=== PATIENT | male | born 1970 | race Caucasian/White ===

== ENCOUNTER → 2016-07-20 | Outpatient (CLI) | payer OTHER ==
[~2016-07-20] MED LIST: LSN/2025 PO
[2016-07-20 09:58] LABS: ESTIMATED AVERAGE GLUCOSE 154 mg/dl; HA1C FLAG Normal (Normal)
[2016-07-20 10:07] LABS: ALB/GLOB RATIO 1.2 (0.9-2); ALKALINE PHOSPHATASE 90 U/L (45-117); ALT/SGPT 67 U/L (12-78); AST/SGOT 26 U/L (15-37); BLOOD UREA NITROGEN 19 mg/dl (7-18); BUN/CREATININE RATIO 14.5 (10-20); CALCIUM 9.7 mg/dl (8.5-10.1); CARBON DIOXIDE 30 mmol/L (21-32); CHLORIDE 102 mmol/L (98-107); CHOLESTEROL 148 mg/dl (0-200); GLUCOSE 137 mg/dl (70-99); HDL CHOLESTEROL 37 mg/dl; LDL CHOLESTEROL CALCULATED 69 mg/dl; POTASSIUM 4.3 mmol/L (3.5-5.1); SODIUM 138 mmol/L (136-145); TRIGLYCERIDES 210 mg/dl (0-150); VERY LOW DENSITY LIPOPROT CALC 42 mg/dl
[2016-07-20 10:44] LABS: LYME DISEASE AB IGG NEG (NEG); LYME DISEASE AB IGM NEG (NEG)
== END | disposition home or self-care (01) ==
LOC: C.LABSPEC 08:18
PROVIDERS: ATTEND Nurse Practitioner
DX: Z00.00 Encounter for general adult medical examination without abnormal findings (principal); E11.9 Type 2 diabetes mellitus without complications; E78.2 Mixed hyperlipidemia; R53.83 Other fatigue; W57.XXXA Bitten or stung by nonvenomous insect and other nonvenomous arthropods, initial encounter

== ENCOUNTER 2022-06-08 17:47 | Inpatient (IN) ==
[2022-06-08] MEDS ORDERED: CEFEPIME 2,000 MG/20 ML VIAL IV STA (18:28)
--- NOTE | 2022-06-08 18:44 | Emergency Department Note ---
Impression & Plan Cellulitis, Tachycardia, Chills, Ulcer ED Provider Note NAME: CAITIE ADHIKARI AGE: 51 SEX: M : 1970 ARRIVES VIA: Walk-In INFORMANT: [Patient][family] ED PROVIDER(S): [Demetris Neil MD] CHIEF COMPLAINT: Foot injury, possible infection HISTORY OF PRESENT ILLNESS: The patient is a 51-year-old male who states that over a month ago, he pulled a blister off the right plantar first toe. The area just has not healed. Today, he noticed some right toe erythema that seems to be spreading up his foot and even his leg. He had some chills earlier and felt lightheaded. No fever. No real pain. He has not had respiratory complaints, no abdominal pain or chest pain. He is diabetic, no prior history of cellulitis. PMHx/PSHx: See Below SOCIAL HISTORY: See Below. PHYSICAL EXAM: GENERAL: Patient is in no acute distress. HEENT: No acute trauma, normocephalic atraumatic, mucous membranes moist, no nasal congestion. NECK: No stridor, no adenopathy, no meningismus, trachea is midline. LUNGS: Clear to auscultation bilaterally, no wheeze, no rhonchi, breath sounds equal. HEART: Mildly tachycardic, regular rhythm, no murmurs. ABDOMEN: Soft, nontender, bowel sounds positive, no peritonitis. EXTREMITIES: No cyanosis. The patient has edema of the right foot and right first toe. There is erythema and warmth that extends from the toe up the dorsal foot and up the medial aspect of the leg. There is a 1 cm open lesion to the medial plantar portion of the right first toe consistent with what seems like an ulcer. A foul odor is noted. NEUROLOGIC: Oriented x 3, no acute motor or sensory deficits, no focal weakness. SKIN: No jaundice, no diaphoresis. DIFFERENTIAL DIAGNOSIS: Sepsis or bacteremia, osteomyelitis, cellulitis, abscess, electrolyte imbalance, dehydration, among others. EMERGENCY DEPARTMENT COURSE/PROCEDURES: Prior/Outside records reviewed: None. ECG per my interpretation: Indication was possible sepsis. The ECG shows a normal sinus rhythm with a rate of 90. There is no ST elevation, no PVCs. The QTc is 428. Continuous Cardiac Monitoring per my interpretation: An order was placed for continuous cardiac monitoring. The monitor shows a rate of 93 with normal sinus rhythm. MEDICAL DECISION MAKING: There is no leukocytosis or concerning anemia. There is a normal platelet count. Sodium slightly low at 132 but not in need of emergent correction. Creatinine was slightly elevated at 1.42 consistent with some dehydration or renal insufficiency. Lactic acid level was not elevated making severe sepsis less likely. No concerning liver enzyme elevation. Procalcitonin level was not elevated. ECG showed a normal sinus rhythm, no ischemia. Cardiac enzyme testing x1 is not consistent with acute cardiac injury. COVID test returned negative. Right foot CT does not show any obvious osteomyelitis. A deep tissue infection was suspected. The patient did present tachycardic. He complained of chills. He had a deep ulcer to the right first toe and a right foot and leg cellulitis. The patient was given IV cefepime as antibiotic coverage. He was given 2 L of IV saline for hydration. The patient is in need of a hospital stay. He is diabetic with a deep right toe ulcer. There is a foul odor from the wound. I believe he will do poorly as an outpatient. I did speak with case management, the on-call hospitalist was counseled. The patient is aware of all his findings. DISPOSITION: Patient's presentation and findings warrant a hospital stay. Past Med/Surg History Medical History GERD (gastroesophageal reflux disease) HX-UNDER CONTROL Hyperlipidemia Hypertension Hypertriglyceridemia Interstitial cystitis Mild renal insufficiency Type 2 diabetes mellitus Surgical History History of bladder surgery CYSTOSCOPY X 2 Family History Father Hypertension Stroke Grandmother (Paternal) Family history of diabetes mellitus Denies family history of Ovarian cancer Prostate cancer Myocardial infarction Breast cancer Colorectal cancer Social History Smoking Status: Current every day smoker Tobacco Type: Smokeless Tobacco (Dip or Chew) Second Hand Exposure: Yes (FAMILY SMOKES); Hx Alcohol Use: Yes Alcohol type: beer Hx Substance Use: No Preferred Language: Upper Sorbian Communication Ability: Effective Pediatric Sports Medicine Specialist Required: No Beliefs That Will Affect Care: None marital status: Current Living Situation: Spouse and Family current occupational status: employed current occupation: [employer] Feels Safe at Home: Yes Dental Care, Regularly: No Physical Activity Frequency: Daily Seatbelt Use: always Sunscreen Use: No Assistive Devices: None Allergies Allergies Allergy/AdvReac Type Severity Reaction Status Date / Time No Known Allergies Allergy Unknown Verified 06/08/22 19:06 Home Meds Previous Rx's Medication Instructions Recorded pen needle, diabetic 31 gauge x #100 ea 10/13/1806/16" (BD Ultra-Fine Mini Pen Needle) metformin 500 mg tablet,extended 1,000 mg PO BID #360 tabs 08/10/21 release 24 hr lisinopril 20 1 tab PO QAM #90 tabs 11/18/21 mg-hydrochlorothiazide 25 mg tablet empagliflozin 25 mg tablet 25 mg PO QAM #90 tabs 05/30/22 (Jardiance) Results & Data (ED) Vital Signs Vital Signs - 24 hr 06/08/22 18:04 06/08/22 18:20 06/08/22 18:29 Temperature 36.7 C Temperature Source Oral Pulse Rate 107 H 94 H Pulse Rate [Apical] 93 H Pulse Rhythm [Apical] Regular Pulse Strength [Apical] Normal Respiratory Rate 20 20 Respiratory Effort / Characteristics Non-Labored Spontaneous Non-Labored Spontaneous Respiratory Depth Normal Normal Respiratory Pattern Regular Blood Pressure 127/68 Blood Pressure [Right Arm] 122/69 Blood Pressure Mean 87 Blood Pressure Mean [Right Arm] 86 Blood Pressure Position [Right Arm] Lying Pulse Oximetry 100 98 100 Oxygen Delivery Method Room Air Room Air Room Air Sepsis Recent Fever Within 48 Hours No Sepsis New/Unexplained Change in Mental Status No Sepsis Action Taken by Nursing No Action Required 06/08/22 18:29 06/08/22 19:42 Temperature Temperature Source Pulse Rate Pulse Rate [Apical] 94 H 91 H Pulse Rhythm [Apical] Regular Regular Pulse Strength [Apical] Normal Normal Respiratory Rate 20 20 Respiratory Effort / Characteristics Non-Labored Spontaneous Non-Labored Spontaneous Respiratory Depth Normal Normal Respiratory Pattern Regular Regular Blood Pressure Blood Pressure [Right Arm] 122/69 136/77 Blood Pressure Mean Blood Pressure Mean [Right Arm] 86 96 Blood Pressure Position [Right Arm] Sitting Pulse Oximetry 99 100 Oxygen Delivery Method Room Air Sepsis Recent Fever Within 48 Hours Sepsis New/Unexplained Change in Mental Status Sepsis Action Taken by Group Home Medications Current Medication List: was personally reviewed by me Laboratory Data Attestation: I reviewed the patient's lab results. 06/08/22 18:36 06/08/22 18:36 Lab Results 06/08/22 06/08/22 06/08/22 Range/Units 18:36 18:36 18:36 WBC 10.05 (4.8-10.8) K/ul RBC 4.49 L (4.70-6.10) M/uL Hgb 14.3 (14.0-18.0) g/dl Hct 40.1 L (42.0-52.0) % MCV 89.3 (80.0-100.0) fL MCH 31.8 (25.0-34.0) pg MCHC 35.7 (32.0-36.0) g/dL RDW Std Deviation 39.1 (36.4-46.3) fL RDW Coeff of Mary Ellen 12.1 (11.5-14.5) % Plt Count 160 (130-400) K/uL MPV 10.3 (9.4-12.4) fL Immature Gran % (Auto) 0.4 % Neut % (Auto) 72.3 % Lymph % (Auto) 18.8 % [place] % (Auto) 7.8 % Eos % (Auto) 0.3 % Baso % (Auto) 0.4 % Neut # (Auto) 7.27 H (1.40-6.50) K/uL Lymph # (Auto) 1.89 (1.2-3.4) K/uL [place] # (Auto) 0.78 H (0.11-0.59) K/uL Eos # (Auto) 0.03 (0-0.50) K/uL Baso # (Auto) 0.04 (0-0.2) K/uL Immature Gran # (Auto) 0.04 (0.01-0.20) K/uL Sodium 132 L (136-145) mmol/L Potassium 3.9 (3.5-5.1) mmol/L Chloride 97 L (98-107) mmol/L Carbon Dioxide 25 (21-32) mmol/L Anion Gap 10 (3-11) BUN 33 H (6-23) mg/dl Creatinine 1.42 H (0.6-1.4) mg/dl Est Cr Clr Drug Dosing 76.8 ml/min Est GFR ( Amer) 65.4 ml/min Est GFR (Non-Af Amer) 56.4 ml/min BUN/Creatinine Ratio 23.2 H (10-20) Glucose 170 H (70-99(Fasting)) mg/dl Lactate 1.2 (0.4-2.0) mmol/L Calcium 9.4 (8.5-10.1) mg/dl Magnesium 2.1 (1.7-2.4) mg/dl Total Bilirubin 1.1 H (0.2-1.0) mg/dl Direct Bilirubin 0.2 (0-0.2) mg/dl AST 25 (13-39) U/L ALT 41 (7-52) U/L Alkaline Phosphatase 85 (34-104) U/L Troponin I High Sens 6.7 (0-20) pg/ml Total Protein 7.7 (6.0-8.3) gm/dl Albumin 4.3 (3.4-5.0) gm/dl Procalcitonin (0-0.5) ng/ml SARS-CoV-2, RNA, NAAT (NEGATIVE) 06/08/22 06/08/22 Range/Units 18:36 18:51 WBC (4.8-10.8) K/ul RBC (4.70-6.10) M/uL Hgb (14.0-18.0) g/dl Hct (42.0-52.0) % MCV (80.0-100.0) fL MCH (25.0-34.0) pg MCHC (32.0-36.0) g/dL RDW Std Deviation (36.4-46.3) fL RDW Coeff of Mary Ellen (11.5-14.5) % Plt Count (130-400) K/uL MPV (9.4-12.4) fL Immature Gran % (Auto) % Neut % (Auto) % Lymph % (Auto) % [place] % (Auto) % Eos % (Auto) % Baso % (Auto) % Neut # (Auto) (1.40-6.50) K/uL Lymph # (Auto) (1.2-3.4) K/uL [place] # (Auto) (0.11-0.59) K/uL Eos # (Auto) (0-0.50) K/uL Baso # (Auto) (0-0.2) K/uL Immature Gran # (Auto) (0.01-0.20) K/uL Sodium (136-145) mmol/L Potassium (3.5-5.1) mmol/L Chloride (98-107) mmol/L Carbon Dioxide (21-32) mmol/L Anion Gap (3-11) BUN (6-23) mg/dl Creatinine (0.6-1.4) mg/dl Est Cr Clr Drug Dosing ml/min Est GFR ( Amer) ml/min Est GFR (Non-Af Amer) ml/min BUN/Creatinine Ratio (10-20) Glucose (70-99(Fasting)) mg/dl Lactate (0.4-2.0) mmol/L Calcium (8.5-10.1) mg/dl Magnesium (1.7-2.4) mg/dl Total Bilirubin (0.2-1.0) mg/dl Direct Bilirubin (0-0.2) mg/dl AST (13-39) U/L ALT (7-52) U/L Alkaline Phosphatase (34-104) U/L Troponin I High Sens (0-20) pg/ml Total Protein (6.0-8.3) gm/dl Albumin (3.4-5.0) gm/dl Procalcitonin 0.29 (0-0.5) ng/ml SARS-CoV-2, RNA, NAAT NEGATIVE (NEGATIVE) Administered Medications Discontinued Medications Sodium Chloride (Nss 1000ml) 1,000 mls @ 999 mls/hr IV .Q1H1M ALCIRA Stop: 06/08/22 20:30 Last Infusion: 06/08/22 21:03 Dose: 0 mls/hr Documented By: Admin: 06/08/22 19:46 Dose: 999 mls/hr Documented By: Infusion: 06/08/22 19:46 Dose: 999 mls/hr Documented By: Admin: 06/08/22 18:54 Dose: 999 mls/hr Documented By: ROBIN Cefepime HCl (Maxipime) 2,000 mg in 20 mls @ 5 mls/min IV NOW STA; Protocol Stop: 06/08/22 18:31 Last Admin: 06/08/22 19:29 Dose: 5 mls/min Documented By: [facility] Imaging Data Radiologist's Impression: Foot CT 06/08/22 18:28 Exam(s): CT RIGHT FOOT Without Contrast, CT LEFT FOOT EXAM: CT Right Lower Extremity Without Intravenous Contrast, Foot CLINICAL HISTORY: Reason for exam: poss osteo. TECHNIQUE: Axial computed tomography images of the right foot without intravenous contrast. Automated exposure control was utilized for the study. A dose lowering technique was utilized adhering to the principles of ALARA. COMPARISON: No relevant prior studies available. FINDINGS: Bones/joints: Unremarkable. No metatarsal fracture. No Lisfranc malalignment. Soft tissues: Soft tissue ulcer along the medial, plantar aspect of the great toe measures approximately 9 x 8 mm. Associated, soft tissue swelling and skin thickening, consistent with cellulitis. No fluid collection or abscess. No osseous erosion or focal osteopenia to indicate osteomyelitis at this time. No radiopaque foreign body. IMPRESSION: Soft tissue ulcer along the medial, plantar aspect of the great toe measures approximately 9 x 8 mm. Associated, soft tissue swelling and skin thickening, consistent with cellulitis. No fluid collection or abscess. No osseous erosion or focal osteopenia to indicate osteomyelitis at this time. EXAM: CT Left Lower Extremity Without Intravenous Contrast, Foot CLINICAL HISTORY: Reason for exam: poss osteo. TECHNIQUE: Axial computed tomography images of the left foot without intravenous contrast. Automated exposure control was utilized for the study. A dose lowering technique was utilized adhering to the principles of ALARA. COMPARISON: No relevant prior studies available. FINDINGS: Bones/joints: Unremarkable. No acute fracture. No dislocation. Soft tissues: Unremarkable. No radiopaque foreign body. Other findings: Bipartite medial sesamoid. IMPRESSION: No acute findings in the left foot. Electronically signed by: Wali Em MD 06/08/22 19:59 PM Discharge Plan Visit Data Chief Complaint: Foot Injury/Pain Stated Complaint: R FOOT POSSIBLY SPRAINED, TOE POSSIBLY INFECTED ED Provider: Demetris Neil Discharge Problem: Cellulitis, Tachycardia, Chills, Ulcer Patient Disposition: Admitted As Inpatient Condition: Fair Forms Stand Alone Forms: [facility] [employer] Prescriptions Prescriptions: No Action metformin 500 mg tablet extended release 24 hr 1,000 mg PO BID Qty: 360 3RF lisinopril-hydrochlorothiazide 20-25 mg tablet 1 tab PO QAM Qty: 90 3RF Jardiance 25 mg tablet 25 mg PO QAM Qty: 90 3RF (DME) pen needle, diabetic [BD Ultra-Fine Mini Pen Needle] 31 gauge x 3/16" needle See Dose Instructions .ROUTE .MEDSUPPLY Qty: 100 0RF Dose Instruction: As directed Rx Instructions: As directed 1 daily Referrals Referrals: No Kim MD [Primary Care Provider] -
[2022-06-08] MEDS: SODIUM CHLORIDE 0.9% 1000ML 1,000 ML IV SCH ×2 (18:54→19:46)
[2022-06-08 19:12] LABS: Basophils # (auto) 0.04 K/uL (0-0.2); Basophils % (auto) 0.4 %; Eosinophils # (auto) 0.03 K/uL (0-0.50); Eosinophils % (auto) 0.3 %; Hematocrit (blood only) 40.1 % (42.0-52.0); Hemoglobin 14.3 g/dl (14.0-18.0); Immature Granulocytes # (auto) 0.04 K/uL (0.01-0.20); Immature Granulocytes % (auto) 0.4 %; Lymphocytes # (auto) 1.89 K/uL (1.2-3.4); Lymphocytes % (auto) 18.8 %; Mean Corpuscular Hemoglobin 31.8 pg (25.0-34.0); Mean Corpuscular Hgb Conc 35.7 g/dL (32.0-36.0); Mean Corpuscular Volume 89.3 fL (80.0-100.0); Mean Platelet Volume 10.3 fL (9.4-12.4); Monocytes # (auto) 0.78 K/uL (0.11-0.59); Monocytes % (auto) 7.8 %; Neutrophils # (auto) 7.27 K/uL (1.40-6.50); Neutrophils % (auto) 72.3 %; Platelet Count 160 K/uL (130-400); RDW Coefficient of Variation 12.1 % (11.5-14.5); RDW Standard Deviation 39.1 fL (36.4-46.3); Red Blood Count 4.49 M/uL (4.70-6.10); White Blood Count 10.05 K/ul (4.8-10.8)
[2022-06-08 19:13] LABS: Albumin Level 4.3 gm/dl (3.4-5.0); BUN Creatinine Ratio 23.2 (10-20); Bilirubin Direct 0.2 mg/dl (0-0.2); Bilirubin,Total 1.1 mg/dl (0.2-1.0); Calcium 9.4 mg/dl (8.5-10.1); Creatinine Clr Calc Pharmacy 76.8 ml/min; Est GFR (African American) 65.4 ml/min; Est GFR (Non-African American) 56.4 ml/min; Magnesium 2.1 mg/dl (1.7-2.4); Potassium 3.9 mmol/L (3.5-5.1); Total Protein 7.7 gm/dl (6.0-8.3)
[2022-06-08 19:19] LABS: Troponin I High Sensitivity 6.7 pg/ml (0-20)
--- NOTE | 2022-06-08 20:00 | CT Scan Report ---
Exam(s): CT RIGHT FOOT Without Contrast, CT LEFT FOOT EXAM: CT Right Lower Extremity Without Intravenous Contrast, Foot CLINICAL HISTORY: Reason for exam: poss osteo. TECHNIQUE: Axial computed tomography images of the right foot without intravenous contrast. Automated exposure control was utilized for the study. A dose lowering technique was utilized adhering to the principles of ALARA. COMPARISON: No relevant prior studies available. FINDINGS: Bones/joints: Unremarkable. No metatarsal fracture. No Lisfranc malalignment. Soft tissues: Soft tissue ulcer along the medial, plantar aspect of the great toe measures approximately 9 x 8 mm. Associated, soft tissue swelling and skin thickening, consistent with cellulitis. No fluid collection or abscess. No osseous erosion or focal osteopenia to indicate osteomyelitis at this time. No radiopaque foreign body. IMPRESSION: Soft tissue ulcer along the medial, plantar aspect of the great toe measures approximately 9 x 8 mm. Associated, soft tissue swelling and skin thickening, consistent with cellulitis. No fluid collection or abscess. No osseous erosion or focal osteopenia to indicate osteomyelitis at this time. EXAM: CT Left Lower Extremity Without Intravenous Contrast, Foot CLINICAL HISTORY: Reason for exam: poss osteo. TECHNIQUE: Axial computed tomography images of the left foot without intravenous contrast. Automated exposure control was utilized for the study. A dose lowering technique was utilized adhering to the principles of ALARA. COMPARISON: No relevant prior studies available. FINDINGS: Bones/joints: Unremarkable. No acute fracture. No dislocation. Soft tissues: Unremarkable. No radiopaque foreign body. Other findings: Bipartite medial sesamoid. IMPRESSION: No acute findings in the left foot. Electronically signed by: Wali Em MD 06/08/22 19:59 PM
--- NOTE | 2022-06-08 20:49 | History & Physical Report ---
Patient seen and examined. I agree with the history and physical and the plan as outlined in the resident's note. Date of Service June 08, 2022 Assessment & Plan (1) Cellulitis: (2) Ulcer: (3) Hyperlipidemia: (4) Mild renal insufficiency: (5) Hypertension: (6) Type 2 diabetes mellitus: Shantal Guillory is a 51M with history of chronic pain, HLD, renal insufficiency, HTN, and T2DM who presented for evaluation of a foot wound and associated erythema. Cellulitis/R Hallux Ulceration (in setting of uncontrolled DM) - 1 month of non-healing ulceration of R great toe w/ 2 days of soft tissue swelling and erythema - CT evidence of ulceration and cellulitis w/o evidence of osteomyelitis - Wound and blood cultures pending - Does not meet SIRS criteria, afebrile - Received 2g of Cefepime in ER - Now dose of Metronidazole ordered - Planned course of Metronidazole 500 mg q8h + Cefepime 2g q12h to cover for diabetic foot infection * Empiric coverage for anaerobes and gram negatives (including pseudomonas), but not MRSA at this time * Narrow as needed based on culture results Diabetes Mellitus, Type 2 (uncontrolled) - Outpatient management with Jardiance and Metformin - Most recent A1c 10.9 (05/26/22) - Glucose on admission 170, has been averaging 300s at home - Home PO medications held, SSI ordered * Anticipate basal and bolus dosing based off SSI requirements Hyponatremia (mild) - Patient's Na level 132 on admission, glucose level elevated - No evidence of hypervolemia on exam - Suspect hyponatremia a/w hyperglycemia - Received 2L NSS in ER - Monitor metabolic panel Renal Insufficiency - Patient's GFR 56.4, Cr elevated to 1.42 (baseline appears to be closer to 1.08) - Received 2L NSS in ER - Recheck metabolic panel in AM to assess need for IVF Hyperlipidemia - No home regimen Hypertension - Continue home Lisinopril-HCTZ FEN: Carb Consistent DM2 Code status: Full Code DVT ppx: Lovenox Isolation: None Dispo:Med/Surg History of Present Illness Chief Complaint: Foot Injury Primary Care Provider: No Kim MD Kahlil is a 51M with history of chronic pain, HLD, renal insufficiency, HTN, and T2DM who presented for evaluation of a foot wound and associated erythema. 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 He notes that the blister showed no evidence of healing over the last month. He has been washing it regularly and putting Neosporin on it w/o benefit. Patient has had blisters on his toes before, but none had ever done this. He notes that yesterday evening he started to notice swelling and redness in his right great toe that seemed. He does note that he recently started Jardiance for uncontrolled glucose levels and that he continues to take Metformin. His glucose levels have been elevated recently, primarily in the 300s. His last A1c was 10.9. Patient notes that he has not had any pain in his foot, and that he cannot feel that there is anything wrong. ER Course: Cefepime, 2 L NaCl Allergies Allergy/AdvReac Type Severity Reaction Status Date / Time No Known Allergies Allergy Unknown Verified 06/08/22 19:06 Home Medications Medication Instructions Recorded Confirmed Type pen needle, diabetic 31 gauge x #100 ea 10/13/18 05/18/22 Rx 3/16" (BD Ultra-Fine Mini Pen Needle) metformin 500 mg tablet,extended 1,000 mg PO BID #360 tabs 08/10/21 06/08/22 Rx release 24 hr lisinopril 20 1 tab PO QAM #90 tabs 11/18/21 06/08/22 Rx mg-hydrochlorothiazide 25 mg tablet empagliflozin 25 mg tablet 25 mg PO QAM #90 tabs 05/30/22 06/08/22 Rx (Jardiance) Past Med/Surg History Medical History (Updated 06/08/22 @ 21:43 by Demetris Neil MD) GERD (gastroesophageal reflux disease) HX-UNDER CONTROL Hyperlipidemia Hypertension Hypertriglyceridemia Interstitial cystitis Mild renal insufficiency Type 2 diabetes mellitus Surgical History History of bladder surgery CYSTOSCOPY X 2 Family History Father Hypertension Stroke Grandmother (Paternal) Family history of diabetes mellitus Denies family history of Ovarian cancer Prostate cancer Myocardial infarction Breast cancer Colorectal cancer Social History Smoking Status: Current every day smoker Tobacco Type: Smokeless Tobacco (Dip or Chew) Second Hand Exposure: Yes (FAMILY SMOKES); Hx Alcohol Use: Yes Alcohol type: beer Hx Substance Use: No Preferred Language: Puerto Rican Communication Ability: Effective Supervisor Pleating Required: No Beliefs That Will Affect Care: None marital status: Current Living Situation: Spouse and Family current occupational status: employed current occupation: [employer] Feels Safe at Home: Yes Dental Care, Regularly: No Physical Activity Frequency: Daily Seatbelt Use: always Sunscreen Use: No Assistive Devices: None Review of Systems Review of Systems: As per HPI Physical Exam Physical Exam: Gen: NAD, alert, interactive HEENT: Supple, no LAD, no thyromegaly, no JVD Resp:Non-labored, no wheezing/rhonchi/rales, CTAB CV:RRR, normal S1/S2, no M/R/G Abd: Soft, non-distended, no TTP, normoactive bowels, no masses Extr: 2+ dp bilaterally, no peripheral edema Skin: Soft tissue edema and erythema noted on right great toe extending to the base of the digit, faint extension of erythema towards the medial/plantar aspect of the foot, 1.5 cm purulent ulceration present at the plantar aspect of the great toe a/w 0.25 cm wide ~1 cm deep extension deep into the soft tissue, appreciable foul odor Results & Data Results & Data ([facility]) Vital Signs (Past 12 Hours) Vital Signs Temp Pulse Pulse Resp BP BP Pulse Ox 06/08/22 19:42 91 H 20 136/77 100 06/08/22 18:29 94 H 20 122/69 99 06/08/22 18:29 94 H 100 06/08/22 18:20 93 H 20 122/69 98 06/08/22 18:04 36.7 C 107 H 20 127/68 100 O2 Del Method 06/08/22 19:42 06/08/22 18:29 Room Air 06/08/22 18:29 Room Air 06/08/22 18:20 Room Air 06/08/22 18:04 Room Air Diagnostic Findings Foot CT 06/08/22 18:28 Exam(s): CT RIGHT FOOT Without Contrast, CT LEFT FOOT EXAM: CT Right Lower Extremity Without Intravenous Contrast, Foot CLINICAL HISTORY: Reason for exam: poss osteo. TECHNIQUE: Axial computed tomography images of the right foot without intravenous contrast. Automated exposure control was utilized for the study. A dose lowering technique was utilized adhering to the principles of ALARA. COMPARISON: No relevant prior studies available. FINDINGS: Bones/joints: Unremarkable. No metatarsal fracture. No Lisfranc malalignment. Soft tissues: Soft tissue ulcer along the medial, plantar aspect of the great toe measures approximately 9 x 8 mm. Associated, soft tissue swelling and skin thickening, consistent with cellulitis. No fluid collection or abscess. No osseous erosion or focal osteopenia to indicate osteomyelitis at this time. No radiopaque foreign body. IMPRESSION: Soft tissue ulcer along the medial, plantar aspect of the great toe measures approximately 9 x 8 mm. Associated, soft tissue swelling and skin thickening, consistent with cellulitis. No fluid collection or abscess. No osseous erosion or focal osteopenia to indicate osteomyelitis at this time. EXAM: CT Left Lower Extremity Without Intravenous Contrast, Foot CLINICAL HISTORY: Reason for exam: poss osteo. TECHNIQUE: Axial computed tomography images of the left foot without intravenous contrast. Automated exposure control was utilized for the study. A dose lowering technique was utilized adhering to the principles of ALARA. COMPARISON: No relevant prior studies available. FINDINGS: Bones/joints: Unremarkable. No acute fracture. No dislocation. Soft tissues: Unremarkable. No radiopaque foreign body. Other findings: Bipartite medial sesamoid. IMPRESSION: No acute findings in the left foot. Electronically signed by: Wali Em MD 06/08/22 19:59 PM Resident Activity Tracking Resident Involvement: Resident Care Provided Care Provided: Adult Hospital Medicine (1) Cellulitis Laterality: right Site of cellulitis: extremity Site of cellulitis of extremity: lower extremity Qualified Code(s): L03.115 - Cellulitis of right lower limb
[2022-06-08] MEDS ORDERED: metroNIDAZOLE 500 MG/100 ML BAG IV STA (21:36)
[2022-06-08] MEDS ORDERED: ACETAMINOPHEN 325 MG TAB PO PRN (22:57)
[2022-06-08] MEDS ORDERED: GLUCOSE 40% GEL 15 GM TUBE PO PRN (23:45)
[2022-06-08] MEDS ORDERED: CARBOHYDRATES FOR HYPOGLYCEMIA PO PRN (23:45)
[2022-06-08] MEDS ORDERED: GLUCOSE 10 TAB/TUBE PO PRN (23:45)
[2022-06-08] MEDS ORDERED: GLUCAGON FOR INJ 1 MG VIAL IM PRN (23:45)
[2022-06-08] MEDS ORDERED: DEXTROSE 50% 50 ML SYRINGE IV PRN (23:45)
[2022-06-09 05:53] LABS: Basophils # (auto) 0.02 K/uL (0-0.2); Basophils % (auto) 0.3 %; Eosinophils # (auto) 0.05 K/uL (0-0.50); Eosinophils % (auto) 0.6 %; Hematocrit (blood only) 36.5 % (42.0-52.0); Immature Granulocytes # (auto) 0.02 K/uL (0.01-0.20); Immature Granulocytes % (auto) 0.3 %; Lymphocytes # (auto) 1.88 K/uL (1.2-3.4); Lymphocytes % (auto) 24.1 %; Mean Corpuscular Hemoglobin 32.1 pg (25.0-34.0); Mean Corpuscular Hgb Conc 35.6 g/dL (32.0-36.0); Mean Corpuscular Volume 90.1 fL (80.0-100.0); Mean Platelet Volume 9.9 fL (9.4-12.4); Monocytes # (auto) 0.63 K/uL (0.11-0.59); Monocytes % (auto) 8.1 %; Neutrophils % (auto) 66.6 %; Platelet Count 143 K/uL (130-400); RDW Standard Deviation 39.7 fL (36.4-46.3); Red Blood Count 4.05 M/uL (4.70-6.10)
[2022-06-09] MEDS: CEFEPIME 2,000 MG in SYRINGE 0 ML IV SCH ×2 (05:58→19:17)
[2022-06-09] MEDS: metroNIDAZOLE 500 MG/100 ML BAG IV SCH ×3 (05:59→21:09)
[2022-06-09 06:09] LABS: Albumin Globulin Ratio 1.2 (0.9-2); Albumin Level 3.7 gm/dl (3.4-5.0); BUN Creatinine Ratio 20.6 (10-20); Bilirubin,Total 1.1 mg/dl (0.2-1.0); Calcium 8.4 mg/dl (8.5-10.1); Est GFR (African American) 75.5 ml/min; Est GFR (Non-African American) 65.1 ml/min; Globulin 3.1 gm/dl (2.5-4.0); Potassium 3.9 mmol/L (3.5-5.1); Total Protein 6.8 gm/dl (6.0-8.3)
--- NOTE | 2022-06-09 08:15 | Hospitalist Progress Note ---
Date of Service June 09, 2022 Assessment & Plan (1) Cellulitis: (2) Ulcer: (3) Hyperlipidemia: (4) Mild renal insufficiency: (5) Hypertension: (6) Type 2 diabetes mellitus: Shantal Guillory is a 51M with history of chronic pain, HLD, renal insufficiency, HTN, and T2DM who presented for evaluation of a foot wound and associated erythema. Cellulitis/R Hallux Ulceration (in setting of uncontrolled DM) - 1 month of non-healing ulceration of R great toe w/ 2 days of soft tissue swelling and erythema - CT evidence of ulceration and cellulitis w/o evidence of osteomyelitis - Blood cultures pending -Wound culture: Group C Beta Strep, sensitivities to follow - Does not meet SIRS criteria, afebrile - Received 2g of Cefepime in ER, later started on Metronidazole - Planned course of Metronidazole 500 mg q8h + Cefepime 2g q12h to cover for diabetic foot infection * Empiric coverage for anaerobes and gram negatives (including pseudomonas), MRSA nares negative * Narrow as needed based on culture results - Ordered Arterial Duplex of Right LE: no hemodynamically significant stenosis, normal ankle-brachial indices Diabetes Mellitus, Type 2 (uncontrolled) - Outpatient management with Jardiance and Metformin - Most recent A1c 10.9 (05/26/22) - Glucose on admission 170, has been averaging 300s at home - Home PO medications held, SSI ordered * Anticipate basal and bolus dosing based off SSI requirements Hyponatremia (mild) - Patient's Na level 132 on admission, glucose level elevated. Na of 134 today. - Suspect hyponatremia a/w hyperglycemia - Received 2L NSS in ER - Monitor metabolic panel Renal Insufficiency - Patient's GFR 56.4, Cr elevated to 1.42 on admission --> 1.26 today (baseline appears to be closer to 1.08) - Received 2L NSS in ER Hypertension/Hyperlipidemia - Continue home Lisinopril-HCTZ; not on statin FEN: Carb Consistent DM2 Code status: Full Code DVT ppx: Lovenox Isolation: None Dispo:Med/Surg Admission and Anticipated Discharge Date Admission Date: June 08, 2022 Supervising Physician Co-Signing Physician Notes Resident Physician Supervision Note: I independently interviewed and examined the patient and verified the rhodes history and physical, reviewed labs and image studies and agree with resident findings and care plan. Subjective 06/09: Patient was seen and examined at bedside. He is resting comfortably in bed and currently does not have any pain. He notes that he knows his diabetes has not been under control, but states that in the past month he has started working on his diet/eating healthier and started on Jardiance recently. Today he denies any chest pain, shortness of breath, body aches/chills. Review of Systems Review of Systems: As per HPI Physical Exam Constitutional: WD/WN, vitals as above Eyes: Anicteric sclera ENMT: Mouth: + poor dentition Moist mucous membranes Respiratory: normal respiratory effort, lungs clear to auscultation Cardiovascular: RRR, no murmur, no edema Difficult to palpate pedal pulse Gastrointestinal (Abdomen): normal bowel sounds, soft, nontender, no hepatosplenomegaly Skin: Erythematous right great toe with soft tissue edema, approximately 1cm wound on plantar surface. No visible drainage from wound. Psychiatric: A+Ox3, euthymic affect Results & Data Results & Data ([facility]) Vital Signs (Past 12 Hours) Vital Signs Temp Pulse Pulse Resp BP BP Pulse Ox 06/09/22 07:42 37.0 C 74 17 126/71 97 06/08/22 23:02 36.9 C 81 16 144/76 H 99 06/08/22 21:15 73 20 126/70 98 06/08/22 20:15 75 20 126/68 99 06/08/22 22:00 78 123/72 97 O2 Del Method 06/09/22 07:42 Room Air 06/08/22 23:02 Room Air 06/08/22 21:15 Room Air 06/08/22 20:15 Room Air 06/08/22 22:00 Room Air Resident Activity Tracking Resident Involvement: Resident Care Provided Care Provided: Adult Hospital Medicine (1) Cellulitis Laterality: right Site of cellulitis: extremity Site of cellulitis of extremity: lower extremity Qualified Code(s): L03.115 - Cellulitis of right lower limb
[2022-06-09] MEDS: ENOXAPARIN INJ 40 MG/0.4 ML SYR SQ SCH (08:35)
[2022-06-09] MEDS: INSULIN ASPART PER UNIT SC SCH ×4 (08:39→20:49)
[2022-06-09] MEDS ORDERED: LISINOPRIL/HCTZ 20/25MG 1 TAB PO SCH (09:00)
--- NOTE | 2022-06-09 12:06 | Ultrasound Report ---
US arterial duplex LE RT CLINICAL HISTORY: difficult to palpate pulse, right foot cellulitis TECHNIQUE: Real-time grayscale and color and spectral Doppler ultrasound imaging of the bilateral low er extremity arteries was performed. Measurements calculated based on NASCET criteria. COMPARISON: None available at the time of this dictation. FINDINGS: Triphasic waveforms are seen throughout the right lower extremity with the exception of the posterior tibial artery and dorsalis pedis artery which are monophasic. No elevated velocities are seen. A sma ll amount of plaque is seen in the anterior tibial artery. ANKLE/BRACHIAL INDEX (HOLLY): Brachial: Right: 142 mmHg. Left: 119 mmHg. Ankle (dorsalis pedis): Right: 255 mmHg. Left: 255 mmHg. Ankle (posterior tibial): Right: 255 mmHg. Left: 255 mmHg. Ankle/brachial index: Significantly greater than 1 bilaterally. Incidental note is made of normal-appearing subcentimeter right inguinal lymph nodes. Reference ranges: Normal Ankle/Brachial Index (HOLLY) 1.0-1.4; 0.91-0.99 borderline; < or = 0.9 abnormal (0.7-0.89 mild, 0.51-0.69 moderate, < or = 0.5 severe peripheral arterial disease). Normal Toe/Brachial Index (TBI) > or = 0.6; < 0.6 abnormal (0.34-0.59 mild, 0.12-0.34 moderate, < or = 0.11 severe peripheral arterial disease). IMPRESSION: 1. No hemodynamically significant stenosis. 2. Normal ankle-brachial indices. ACT 112: Negative or not required by law. Electronically signed by: Raphael Wiggins M.D. 06/09/2022 12:04 PM
--- NOTE | 2022-06-09 12:40 | Electrocardiogram Report ---
Test Reason : Blood Pressure : / mmHG Vent. Rate : 090 BPM Atrial Rate : 090 BPM P-R Int : 144 ms QRS Dur : 114 ms QT Int : 350 ms P-R-T Axes : 034 007 029 degrees QTc Int : 428 ms Poor data quality, interpretation may be adversely affected Normal sinus rhythm Normal ECG When compared with ECG of 13-JUL-2020 21:07, No significant change was found Confirmed by Nilay Johnson ([id number]) on 06/09/2022 12:39:47 PM Referred By: No Kim Confirmed By:Nilay Johnson
[2022-06-10] MEDS: CEFEPIME 2,000 MG in SYRINGE 0 ML IV SCH ×2 (05:02→18:39)
[2022-06-10] MEDS: metroNIDAZOLE 500 MG/100 ML BAG IV SCH ×3 (05:04→22:17)
--- NOTE | 2022-06-10 08:11 | Hospitalist Progress Note ---
Date of Service June 10, 2022 Assessment & Plan (1) Cellulitis: (2) Ulcer: (3) Hyperlipidemia: (4) Mild renal insufficiency: (5) Hypertension: (6) Type 2 diabetes mellitus: Shantal Guillory is a 51M with history of chronic pain, HLD, renal insufficiency, HTN, and T2DM who presented for evaluation of a foot wound and associated erythema. Cellulitis/R Hallux Ulceration (in setting of uncontrolled DM) - 1 month of non-healing ulceration of R great toe w/ 2 days of soft tissue swelling and erythema - CT evidence of ulceration and cellulitis w/o evidence of osteomyelitis - Blood cultures- no growth at 48 hours -Wound culture: Group C Beta Strep, staphylococcus species. Sensitivities per micro report. - Received 2g of Cefepime in ER, later started on Metronidazole - Planned course of Metronidazole 500 mg q8h + Cefepime 2g q12h to cover for diabetic foot infection, anticipate total treatment of approx. 14 days * Empiric coverage for anaerobes and gram negatives (including pseudomonas), MRSA nares negative * Narrow as needed based on culture results - Ordered Arterial Duplex of Right LE: no hemodynamically significant stenosis, normal ankle-brachial indices Diabetes Mellitus, Type 2 (uncontrolled) - Outpatient management with Jardiance and Metformin - Most recent A1c 10.9 (05/26/22) - Glucose on admission 170, has been averaging 300s at home - Home PO medications held, SSI ordered * Anticipate basal and bolus dosing based off SSI requirements Hyponatremia (mild) - Patient's Na level 132 on admission, glucose level elevated. Na of 134 today. - Suspect hyponatremia a/w hyperglycemia - Received 2L NSS in ER - Monitor metabolic panel Renal Insufficiency - Patient's GFR 56.4, Cr elevated to 1.42 on admission --> 1.26 --> 0.97 today (baseline appears to be closer to 1.08) - Received 2L NSS in ER Hypertension/Hyperlipidemia - Continue home Lisinopril-HCTZ; not on statin FEN: Carb Consistent DM2 Code status: Full Code DVT ppx: Lovenox Isolation: None Dispo:Med/Surg Admission and Anticipated Discharge Date Admission Date: June 08, 2022 Supervising Physician Co-Signing Physician Notes Resident Physician Supervision Note: I independently interviewed and examined the patient and verified the rhodes history and physical, reviewed labs and image studies and agree with resident findings and care plan. Lashanda Guillory is a 51M with history of chronic pain, HLD, renal insufficiency, HTN, and T2DM who presented for evaluation of a foot wound and associated erythema. 06/10: Patient was seen and examined at bedside. No acute events overnight. Today he states he is feeling well, has been able to ambulate and continues to have no pain. He notes a small amount of drainage from his wound but feels it is less red today. Denies chest pain, shortness of breath, dizziness, weakness. Review of Systems Review of Systems: As per HPI Physical Exam Constitutional: WD/WN, vitals as above ENMT: Mouth: + poor dentition Respiratory: normal respiratory effort, lungs clear to auscultation Cardiovascular: RRR, no murmur, no edema Gastrointestinal (Abdomen): normal bowel sounds, soft, nontender, no hepatosplenomegaly Skin: Erythematous right great toe, no streaking. No visible drainage or bleeding of wound on plantar surface. Psychiatric: A+Ox3, euthymic affect Results & Data Results & Data ([facility]) Vital Signs (Past 12 Hours) Vital Signs Temp Pulse Resp BP Pulse Ox O2 Del Method 06/09/22 20:36 37.0 C 73 18 127/73 97 Room Air Resident Activity Tracking Resident Involvement: Resident Care Provided Care Provided: Adult Hospital Medicine (1) Cellulitis Laterality: right Site of cellulitis: extremity Site of cellulitis of extremity: lower extremity Qualified Code(s): L03.115 - Cellulitis of right lower limb
[2022-06-10] MEDS: ENOXAPARIN INJ 40 MG/0.4 ML SYR SQ SCH (08:38)
[2022-06-10] MEDS: INSULIN ASPART PER UNIT SC SCH ×4 (08:40→20:34)
[2022-06-10 09:45] LABS: Hematocrit (blood only) 37.8 % (42.0-52.0); Hemoglobin 13.5 g/dl (14.0-18.0); Mean Corpuscular Hemoglobin 31.7 pg (25.0-34.0); Mean Corpuscular Hgb Conc 35.7 g/dL (32.0-36.0); Mean Corpuscular Volume 88.7 fL (80.0-100.0); Mean Platelet Volume 9.9 fL (9.4-12.4); Platelet Count 162 K/uL (130-400); RDW Coefficient of Variation 11.9 % (11.5-14.5); RDW Standard Deviation 38.5 fL (36.4-46.3); Red Blood Count 4.26 M/uL (4.70-6.10); White Blood Count 6.38 K/ul (4.8-10.8)
[2022-06-10 10:09] LABS: Albumin Globulin Ratio 1.2 (0.9-2); Albumin Level 3.8 gm/dl (3.4-5.0); BUN Creatinine Ratio 22.7 (10-20); Calcium 8.6 mg/dl (8.5-10.1); Creatinine Clr Calc Pharmacy 112.9 ml/min; Est GFR (African American) 103.6 ml/min; Est GFR (Non-African American) 89.4 ml/min; Globulin 3.3 gm/dl (2.5-4.0); Potassium 4.2 mmol/L (3.5-5.1); Total Protein 7.1 gm/dl (6.0-8.3)
[2022-06-11] MEDS: metroNIDAZOLE 500 MG/100 ML BAG IV SCH (06:17)
[2022-06-11] MEDS: CEFEPIME 2,000 MG in SYRINGE 0 ML IV SCH (06:17)
[2022-06-11] MEDS: ENOXAPARIN INJ 40 MG/0.4 ML SYR SQ SCH (08:52)
[2022-06-11] MEDS: INSULIN ASPART PER UNIT SC SCH ×2 (08:53→12:58)
--- NOTE | 2022-06-11 11:17 | Discharge Summary ---
Date of Service June 11, 2022 Admission HPI Per Admitting Provider Kahlil is a 51M with history of chronic pain, HLD, renal insufficiency, HTN, and T2DM who presented for evaluation of a foot wound and associated erythema. 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 He notes that the blister showed no evidence of healing over the last month. He has been washing it regularly and putting Neosporin on it w/o benefit. Patient has had blisters on his toes before, but none had ever done this. He notes that yesterday evening he started to notice swelling and redness in his right great toe that seemed. He does note that he recently started Jardiance for uncontrolled glucose levels and that he continues to take Metformin. His glucose levels have been elevated recently, primarily in the 300s. His last A1c was 10.9. Patient notes that he has not had any pain in his foot, and that he cannot feel that there is anything wrong. ER Course: Cefepime, 2 L NaCl Admission Exam Per Admitting Provider Gen: NAD, alert, interactive HEENT: Supple, no LAD, no thyromegaly, no JVD Resp:Non-labored, no wheezing/rhonchi/rales, CTAB CV:RRR, normal S1/S2, no M/R/G Abd: Soft, non-distended, no TTP, normoactive bowels, no masses Extr: 2+ dp bilaterally, no peripheral edema Skin: Soft tissue edema and erythema noted on right great toe extending to the base of the digit, faint extension of erythema towards the medial/plantar aspect of the foot, 1.5 cm purulent ulceration present at the plantar aspect of the great toe a/w 0.25 cm wide ~1 cm deep extension deep into the soft tissue, appreciable foul odor Principal Diagnosis Infection of Right Great Toe Discharge Exam Constitutional WD/WN, vitals as above Eyes Anicteric sclerae ENMT Mouth: + poor dentition Respiratory normal respiratory effort, lungs clear to auscultation Cardiovascular RRR, no murmur, no edema Gastrointestinal (Abdomen) normal bowel sounds, soft, nontender, no hepatosplenomegaly Skin Erythematous right great toe, some desquamation of dorsal surface. Plantar surface with wound, no drainage or discharge visible. Psychiatric A+Ox3, euthymic affect Discharge Data Allergies Allergy/AdvReac Type Severity Reaction Status Date / Time No Known Allergies Allergy Unknown Verified 06/08/22 19:06 Consultations 06/08/22 20:24 ED Decision to Admit Stat Ordered Studies 06/08/22 18:28 CT foot RT wo con Stat 06/09/22 10:00 US arterial duplex LE RT Routine Foot CT 06/08/22 18:28 Exam(s): CT RIGHT FOOT Without Contrast, CT LEFT FOOT EXAM: CT Right Lower Extremity Without Intravenous Contrast, Foot CLINICAL HISTORY: Reason for exam: poss osteo. TECHNIQUE: Axial computed tomography images of the right foot without intravenous contrast. Automated exposure control was utilized for the study. A dose lowering technique was utilized adhering to the principles of ALARA. COMPARISON: No relevant prior studies available. FINDINGS: Bones/joints: Unremarkable. No metatarsal fracture. No Lisfranc malalignment. Soft tissues: Soft tissue ulcer along the medial, plantar aspect of the great toe measures approximately 9 x 8 mm. Associated, soft tissue swelling and skin thickening, consistent with cellulitis. No fluid collection or abscess. No osseous erosion or focal osteopenia to indicate osteomyelitis at this time. No radiopaque foreign body. IMPRESSION: Soft tissue ulcer along the medial, plantar aspect of the great toe measures approximately 9 x 8 mm. Associated, soft tissue swelling and skin thickening, consistent with cellulitis. No fluid collection or abscess. No osseous erosion or focal osteopenia to indicate osteomyelitis at this time. EXAM: CT Left Lower Extremity Without Intravenous Contrast, Foot CLINICAL HISTORY: Reason for exam: poss osteo. TECHNIQUE: Axial computed tomography images of the left foot without intravenous contrast. Automated exposure control was utilized for the study. A dose lowering technique was utilized adhering to the principles of ALARA. COMPARISON: No relevant prior studies available. FINDINGS: Bones/joints: Unremarkable. No acute fracture. No dislocation. Soft tissues: Unremarkable. No radiopaque foreign body. Other findings: Bipartite medial sesamoid. IMPRESSION: No acute findings in the left foot. Electronically signed by: Wali Em MD 06/08/22 19:59 PM Duplex Scan Lower Extremity Artery 06/09/22 10:00 US arterial duplex LE RT CLINICAL HISTORY: difficult to palpate pulse, right foot cellulitis TECHNIQUE: Real-time grayscale and color and spectral Doppler ultrasound imaging of the bilateral lower extremity arteries was performed. Measurements calculated based on NASCET criteria. COMPARISON: None available at the time of this dictation. FINDINGS: Triphasic waveforms are seen throughout the right lower extremity with the exception of the posterior tibial artery and dorsalis pedis artery which are monophasic. No elevated velocities are seen. A small amount of plaque is seen in the anterior tibial artery. ANKLE/BRACHIAL INDEX (HOLLY): Brachial: Right: 142 mmHg. Left: 119 mmHg. Ankle (dorsalis pedis): Right: 255 mmHg. Left: 255 mmHg. Ankle (posterior tibial): Right: 255 mmHg. Left: 255 mmHg. Ankle/brachial index: Significantly greater than 1 bilaterally. Incidental note is made of normal-appearing subcentimeter right inguinal lymph nodes. Reference ranges: Normal Ankle/Brachial Index (HOLLY) 1.0-1.4; 0.91-0.99 borderline; < or = 0.9 abnormal (0.7-0.89 mild, 0.51-0.69 moderate, < or = 0.5 severe peripheral arterial disease). Normal Toe/Brachial Index (TBI) > or = 0.6; < 0.6 abnormal (0.34-0.59 mild, 0.12-0.34 moderate, < or = 0.11 severe peripheral arterial disease). IMPRESSION: 1. No hemodynamically significant stenosis. 2. Normal ankle-brachial indices. ACT 112: Negative or not required by law. Electronically signed by: Raphael Wiggins M.D. 06/09/2022 12:04 PM 06/11/22 06/10/22 06/10/22 Range/Units 08:20 20:29 17:28 POC Glucose 187 H 217 H 121 H (70-99) mg/dl 06/10/22 Range/Units 12:25 POC Glucose 201 H (70-99) mg/dl Hospital Course (1) Cellulitis: (2) Ulcer: (3) Hyperlipidemia: (4) Mild renal insufficiency: (5) Hypertension: (6) Type 2 diabetes mellitus: Shantal Guillory is a 51M with history of chronic pain, HLD, renal insufficiency, HTN, and T2DM who presented for evaluation of a foot wound and associated erythema. Cellulitis/R Hallux Ulceration (in setting of uncontrolled DM) Mr. Harrington recalls 1 month of non-healing ulceration of R great toe w/ 2 days of soft tissue swelling and erythema. He notes that he has had similar wounds on both the right and left great toes, although the left toe resolved while this wound has failed to improve. He denied any pain or systemic symptoms but was concerned that it was not healing. On admission there was CT evidence of ulc eration and cellulitis w/o evidence of osteomyelitis, arterial duplex of R. LE without significant findings.. He was initiated on a regimen of Cefepime and Metronidazole on admission. Blood cultures were completed with no growth at >48 hours, but wound cultures identified Group C Beta Strep and staphylococcus aureus. During the admission, the erythema gradually has decreased although is still present. After reviewing culture results/sensitivities and considering clinical improvement, Mr. Harrington was discharged on Penicillin V 500mg q6h for 10 days and Bactrim DS q12h for 10 days. Diabetes Mellitus, Type 2 (uncontrolled) Outpatient management with Jardiance and Metformin. Most recent A1c 10.9 (05/26/22). Home medications resumed at time of discharge. Hyponatremia (mild) Patient's Na level 132 on admission, glucose level elevated. Received IV fluids. Renal Insufficiency Patient's GFR 56.4, Cr elevated to 1.42 on admission --> 1.26 --> 0.97 at time of discharge, appears to be at baseline. Hypertension/Hyperlipidemia Continue home Lisinopril-HCTZ; not on statin Total Time Total Time Spent Total Time Spent (In Minutes): . Discharge Plan Discharge Items Patient Disposition: Home - Self-Care Reason For Visit: FOOT INFECTION Discharge Diagnosis: Foot Infection Condition on Discharge: Fair Activity: Per Instructions section Non-emergency contact: Primary Care Provider Call non-emergency contact if: your pain is worsening, your temperature is above 101.5 and your wound has increased redness Follow-up/Referrals: No Kim MD [Primary Care Provider] - (Hospital discharge follow up for early this coming week, Monday if possible) Diet: Carb Consistent or DM2 Addtl Attending Provider Instructions: You were admitted to the hospital for a foot infection. After CT imaging we determined that the infections was in your skin/soft tissue but was in your bone. You were treated with IV antibiotics, and a wound culture grew bacteria (group c beta strep, and staph aureus) which helped us identify the correct antibiotics for you to be discharged home on. A discharge summary will be sent to your primary care physician to ensure continuity of care. Follow-up appointments: Make a follow-up appointment with your PCP within the next week, on Monday or Monday if possible. -As we discussed, if your wound is not continuing to improve you may need to be referred to Wound Care. Medications: Your medication list has been reviewed and reconciled upon discharge to ensure accuracy and continuity of care. An updated list of all your medications is included with your hospital discharge paperwork. Please review this list closely, and make note of any changes. you kelley being sent home on TWO oral antibiotics We sent a new antibiotic, Penicillin V, to your pharmacy. Take Penicillin V 500mg (1 tablet) every 6 hours for 10 days total. You will start the first dose of this antibiotic this evening at bedtime, as you already received IV antibiotics in the hospital this morning which will last until the evening. We also sent the antibiotic, Bactrim, to your pharmacy. Take Bactrim DS (1 ta blet) every 12 hours for 10 days total. You will start the first dose of this antibiotic this evening at bedtime. CONTACT YOUR PRIMARY CARE PROVIDER if you experience any of the following: Fever Body aches, chills Difficulty following your treatment plan, or difficulty taking medications CALL 911 OR GO TO THE EMERGENCY DEPARTMENT if you experience any of the following: Sudden, severe abdominal pain or nausea/vomiting Severe chest pain, or chest pain that radiates (moves) to your jaw or arm Sudden, severe shortness of breath or difficulty breathing Thank you for allowing us to participate in your care. Pending Studies at Discharge: No Stand-Alone Forms: My [facility], Smoking Cessation Medications and DC Order Prescriptions: New penicillin V potassium 500 mg tablet 500 mg PO Q6H 10 Days Qty: 40 0RF sulfamethoxazole-trimethoprim [Bactrim DS] 800-160 mg tablet 1 tab PO BID 10 Days Qty: 20 0RF Continued metformin 500 mg tablet extended release 24 hr 1,000 mg PO BID Qty: 360 3RF lisinopril-hydrochlorothiazide 20-25 mg tablet 1 tab PO QAM Qty: 90 3RF Jardiance 25 mg tablet 25 mg PO QAM Qty: 90 3RF (DME) pen needle, diabetic [BD Ultra-Fine Mini Pen Needle] 31 gauge x 3/16" needle See Dose Instructions .ROUTE .MEDSUPPLY Qty: 100 0RF Dose Instruction: As directed Rx Instructions: As directed 1 daily Discharge Orders: Discharge Order (Routine); Ordered 06/11/22 Ordered By: Martha Segura Admission Data Admit Date/Time: 06/08/22 21:35 Attending Provider: Brittany French Admit Provider: Cielo Carrera Primary Care Provider: No Kim Other Providers: Jamil Cool Supervising Physician Co-Signing Physician Notes Resident Physician Supervision Note: I independently interviewed and examined the patient and verified the rhodes history and physical, reviewed labs and image studies and agree with resident findings and care plan. Resident Activity Tracking Resident Involvement: Resident Care Provided Care Provided: Adult Hospital Medicine
== END 2022-06-11 15:18 | disposition home or self-care (01) | DRG 603 ==
LOC: ED 17:47 → 3W 21:35 → SUATTDRO 21:35 → 3W 22:36

== ENCOUNTER 2022-06-29 20:57 | Inpatient (IN) ==
[2022-06-29] MEDS ORDERED: SODIUM CHLORIDE 0.9% 1000ML 1,000 ML IV SCH (21:30)
--- NOTE | 2022-06-29 21:30 | Emergency Department Note ---
Impression & Plan Cellulitis of foot ADMIT ED Provider Note HPI: The patient is a 52-year-old gentleman who presents emergency department with swelling/infection to the R great toe and foot. Patient states this has been worsening over the past 2 to 3 days. Patient states he was previously admitted to the hospital earlier this month for the same issue. Patient states that his swelling and pain seem to be getting better, over the past 2 to 3 days since he is returned to work he has noticed that there is increased swelling and he does have some increased discomfort in the right great toe and foot as well. On arrival here to the ED the patient has obvious swelling of the first several digits of the right foot, there is an ulceration to the medial aspect of the right great toe with mild surrounding purulence. Patient denies any recent fevers, he is otherwise hemodynamically stable on arrival, denies any other focal complaint of pain. ROS: - Per HPI *Outpatient medications and allergy history reviewed. *Pertinent external medical records reviewed. PE: General: Alert HEENT: Normocephalic, trachea midline Eyes: Extraocular eye movement is intact, no scleral erythema Pulmonary: Clear to auscultation bilaterally, no wheezing Cardio: Regular rate and rhythm GI: Abdomen is soft to palpation : No suprapubic tenderness MSK: Moderate to severe swelling of the first, second, and third digits of the right foot, ulceration noted to the medial aspect of the first digit of the right foot with mild purulence, no bone exposure, no fluctuance underlying to suggest abscess, capillary refill is less than 2 seconds in the digits of the right foot, there is a palpable dorsalis pedis pulse in the right foot, motor and sensory function is intact Skin: No evidence of rash Neuro: Alert, no focal deficits Psychiatric: Cooperative air sampling and monitoring: (As interpreted by myself): - An order was placed for continuous cardiac monitoring - Patient was noted to be in sinus rhythm with a rate of 95 EKG: (As interpreted by myself): Rate: 90 Rhythm: Normal sinus rhythm Intervals: Within normal limits ST changes: No ST elevation Time: 2130 Interventions provided in ED: -IV vancomycin, IV Zosyn, IV fluid bolus Differential Diagnosis: Right foot cellulitis, diabetic foot ulcer, necrotizing soft tissue infection of the right lower extremity, DVT, compartment syndrome, amongst other potential pathologies. Medical Decision Making: Patient presented to the emergency department with atraumatic pain and swelling in the right foot. Patient states that he has a history of diabetes, he has had issues with a foot ulcer for several months now that seem to have just worsened over the past 2 days. He states previously to this he was improving on a course of oral antibiotics after hospital admission in early June. On arrival patient does have obvious swelling to the first several digits of the right foot with an ulceration to the first digit of the right foot with some mild surrounding purulence. I suspect this is the source of his overlying cellulitis. IV was established and blood cultures ordered, patient's lab work does not show any leukocytosis, x-ray imaging of the right foot was reviewed and per my interpretation does not show any evidence of obvious osteomyelitis or fracture, there is soft tissue swelling noted. I do not see any underlying gas formation. Patient does not have pain out of proportion on my exam to suggest necrotizing fasciitis is in existence at this moment. He was treated here in the ED with IV vancomycin and IV Zosyn. I suspect that his symptoms are secondary to his chronic ulcer with now worsening cellulitis of the right foot. I discussed the patient's presentation with podiatry, Dr. Dawson, he is in agree ment for consultation. Patient was initiated on IV antibiotics, hospitalist service was consulted for admission. Patient and his at the bedside are in agreement to the above plan and the patient was admitted in stable condition. Consultants: PodiatryDr. Dawson Disposition discussion held by myself with: Patient and at the bedside Diagnosis: 1. Diabetic foot ulcer, with overlying infection, acute on chronic 2. Right foot cellulitis, acute 3. Right foot pain, acute 4. Hyperglycemia Disposition: Admission Khoa Bullard DO Emergency Medicine Past Med/Surg History Medical History (Updated 06/30/22 @ 01:29 by Khoa Bullard DO) GERD (gastroesophageal reflux disease) HX-UNDER CONTROL Hyperlipidemia Hypertension Hypertriglyceridemia Interstitial cystitis Mild renal insufficiency Type 2 diabetes mellitus Surgical History History of bladder surgery CYSTOSCOPY X 2 Family History Father Hypertension Stroke Grandmother (Paternal) Family history of diabetes mellitus Denies family history of Ovarian cancer Prostate cancer Myocardial infarction Breast cancer Colorectal cancer Social History Smoking Status: Light tobacco smoker Tobacco Type: Smokeless Tobacco (Dip or Chew) Second Hand Exposure: Yes; Hx Alcohol Use: Yes Alcohol type: hard liquor Hx Substance Use: No Preferred Language: Australian Communication Ability: Effective 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 Beliefs That Will Affect Care: None marital status: Current Living Situation: Family Current Living Situation Comment: and son current occupational status: employed current occupation: [employer] Feels Safe at Home: Yes Dental Care, Regularly: No Physical Activity Frequency: Daily Seatbelt Use: always Sunscreen Use: No Assistive Devices: Crutches Allergies Allergies Allergy/AdvReac Type Severity Reaction Status Date / Time No Known Allergies Allergy Unknown Verified 06/29/22 21:37 Home Meds Previous Rx's Medication Instructions Recorded pen needle, diabetic 31 gauge x #100 ea 10/13/1806/16" (BD Ultra-Fine Mini Pen Needle) metformin 500 mg tablet,extended 1,000 mg PO BID #360 tabs 08/10/21 release 24 hr lisinopril 20 1 tab PO QAM #90 tabs 11/18/21 mg-hydrochlorothiazide 25 mg tablet empagliflozin 25 mg tablet 25 mg PO QAM #90 tabs 05/30/22 (Jardiance) Results & Data (ED) Vital Signs Vital Signs - 24 hr 06/29/22 21:08 06/29/22 20:58 06/29/22 21:23 Temperature 37.6 C H Temperature Source Temporal Artery Scan Pulse Rate 103 H 84 Pulse Rate [Apical] Pulse Rate from SpO2 Sensor Respiratory Rate 18 12 Respiratory Effort / Characteristics Non-Labored Spontaneous Non-Labored Spontaneous Respiratory Depth Normal Blood Pressure 117/75 Blood Pressure [Right Arm] Blood Pressure Mean 89 Blood Pressure Mean [Right Arm] Blood Pressure Position Sitting Pulse Oximetry 100 97 Oxygen Delivery Method Room Air Room Air Sepsis Recent Fever Within 48 Hours No Sepsis New/Unexplained Change in Mental Status No Sepsis Action Taken by Nursing No Action Required 06/29/22 21:52 06/29/22 21:56 06/29/22 21:57 Temperature Temperature Source Pulse Rate 87 86 Pulse Rate [Apical] 85 Pulse Rate from SpO2 Sensor 86 Respiratory Rate 14 19 Respiratory Effort / Characteristics Non-Labored Spontaneous Respiratory Depth Normal Blood Pressure Blood Pressure [Right Arm] 128/69 Blood Pressure Mean Blood Pressure Mean [Right Arm] 88 Blood Pressure Position Pulse Oximetry 97 99 Oxygen Delivery Method Room Air Sepsis Recent Fever Within 48 Hours Sepsis New/Unexplained Change in Mental Status Sepsis Action Taken by Nursing 06/29/22 22:00 06/29/22 22:30 06/29/22 22:45 Temperature Temperature Source Pulse Rate 86 86 Pulse Rate [Apical] Pulse Rate from SpO2 Sensor 83 Respiratory Rate 23 19 Respiratory Effort / Characteristics Respiratory Depth Blood Pressure 137/78 130/79 Blood Pressure [Right Arm] Blood Pressure Mean 97 96 Blood Pressure Mean [Right Arm] Blood Pressure Position Pulse Oximetry 99 99 Oxygen Delivery Method Sepsis Recent Fever Within 48 Hours Sepsis New/Unexplained Change in Mental Status Sepsis Action Taken by Nursing 06/29/22 23:00 06/29/22 23:31 06/29/22 23:45 Temperature Temperature Source Pulse Rate Pulse Rate [Apical] Pulse Rate from SpO2 Sensor 89 93 H 90 Respiratory Rate Respiratory Effort / Characteristics Respiratory Depth Blood Pressure 122/76 125/74 Blood Pressure [Right Arm] Blood Pressure Mean 91 91 Blood Pressure Mean [Right Arm] Blood Pressure Position Pulse Oximetry 99 97 96 Oxygen Delivery Method Sepsis Recent Fever Within 48 Hours Sepsis New/Unexplained Change in Mental Status Sepsis Action Taken by Nursing 06/30/22 00:35 Temperature Temperature Source Pulse Rate 83 Pulse Rate [Apical] Pulse Rate from SpO2 Sensor Respiratory Rate 18 Respiratory Effort / Characteristics Respiratory Depth Blood Pressure 117/72 Blood Pressure [Right Arm] Blood Pressure Mean Blood Pressure Mean [Right Arm] Blood Pressure Position Pulse Oximetry 97 Oxygen Delivery Method Room Air Sepsis Recent Fever Within 48 Hours Sepsis New/Unexplained Change in Mental Status Sepsis Action Taken by Nursing Laboratory Data 06/29/22 21:30 06/29/22 21:30 Lab Results 06/29/22 06/29/22 06/29/22 Range/Units 21:30 21:30 21:30 WBC 8.76 (4.8-10.8) K/ul RBC 4.25 L (4.70-6.10) M/uL Hgb 13.4 L (14.0-18.0) g/dl Hct 38.0 L (42.0-52.0) % MCV 89.4 (80.0-100.0) fL MCH 31.5 (25.0-34.0) pg MCHC 35.3 (32.0-36.0) g/dL RDW Std Deviation 40.5 (36.4-46.3) fL RDW Coeff of Mary Ellen 12.5 (11.5-14.5) % Plt Count 151 (130-400) K/uL MPV 10.1 (9.4-12.4) fL Immature Gran % (Auto) 0.2 % Neut % (Auto) 74.5 % Lymph % (Auto) 17.8 % [place] % (Auto) 7.1 % Eos % (Auto) 0.1 % Baso % (Auto) 0.3 % Neut # (Auto) 6.52 H (1.40-6.50) K/uL Lymph # (Auto) 1.56 (1.2-3.4) K/uL [place] # (Auto) 0.62 H (0.11-0.59) K/uL Eos # (Auto) 0.01 (0-0.50) K/uL Baso # (Auto) 0.03 (0-0.2) K/uL Immature Gran # (Auto) 0.02 (0.01-0.20) K/uL PT 11.4 (9.0-12.0) Seconds INR 1.1 (0.9-1.1) Sodium 131 L (136-145) mmol/L Potassium 3.5 (3.5-5.1) mmol/L Chloride 95 L (98-107) mmol/L Carbon Dioxide 27 (21-32) mmol/L Anion Gap 9 (3-11) BUN 18 (6-23) mg/dl Creatinine 1.26 (0.6-1.4) mg/dl Est Cr Clr Drug Dosing 85.4 ml/min Est GFR ( Amer) 75.0 ml/min Est GFR (Non-Af Amer) 64.7 ml/min BUN/Creatinine Ratio 14.3 (10-20) Glucose 251 H (70-99(Fasting)) mg/dl Lactate (0.4-2.0) mmol/L Calcium 9.3 (8.6-10.3) mg/dl Magnesium 1.8 (1.7-2.4) mg/dl Total Bilirubin 1.2 H (0.2-1.0) mg/dl Direct Bilirubin 0.2 (0-0.2) mg/dl AST 20 (13-39) U/L ALT 21 (7-52) U/L Alkaline Phosphatase 81 (34-104) U/L Total Protein 7.7 (6.0-8.3) gm/dl Albumin 4.2 (3.4-5.0) gm/dl Procalcitonin (0-0.5) ng/ml Urine Color Urine Appearance (Clear) Urine pH (4.5-7.5) Ur Specific [place] (1.000-1.030) Urine Protein (Negative) Urine Glucose (UA) (Negative) Urine Ketones (Negative) Urine Blood (Negative) Urine Nitrite (Negative) Urine Bilirubin (Negative) Urine Urobilinogen (Negative) Ur Leukocyte Esterase (Negative) Urine WBC (Auto) (0-5) /hpf Urine RBC (Auto) (0-4) /hpf U Hyaline Cast (Auto) (0-5) /lpf U Epithel Cells (Auto) (0-5) /lpf Urine Bacteria (Auto) (Negative) SARS-CoV-2, RNA, NAAT (NEGATIVE) 06/29/22 06/29/22 06/29/22 Range/Units 21:30 21:30 22:20 WBC (4.8-10.8) K/ul RBC (4.70-6.10) M/uL Hgb (14.0-18.0) g/dl Hct (42.0-52.0) % MCV (80.0-100.0) fL MCH (25.0-34.0) pg MCHC (32.0-36.0) g/dL RDW Std Deviation (36.4-46.3) fL RDW Coeff of Mary Ellen (11.5-14.5) % Plt Count (130-400) K/uL MPV (9.4-12.4) fL Immature Gran % (Auto) % Neut % (Auto) % Lymph % (Auto) % [place] % (Auto) % Eos % (Auto) % Baso % (Auto) % Neut # (Auto) (1.40-6.50) K/uL Lymph # (Auto) (1.2-3.4) K/uL [place] # (Auto) (0.11-0.59) K/uL Eos # (Auto) (0-0.50) K/uL Baso # (Auto) (0-0.2) K/uL Immature Gran # (Auto) (0.01-0.20) K/uL PT (9.0-12.0) Seconds INR (0.9-1.1) Sodium (136-145) mmol/L Potassium (3.5-5.1) mmol/L Chloride (98-107) mmol/L Carbon Dioxide (21-32) mmol/L Anion Gap (3-11) BUN (6-23) mg/dl Creatinine (0.6-1.4) mg/dl Est Cr Clr Drug Dosing ml/min Est GFR ( Amer) ml/min Est GFR (Non-Af Amer) ml/min BUN/Creatinine Ratio (10-20) Glucose (70-99(Fasting)) mg/dl Lactate 1.3 (0.4-2.0) mmol/L Calcium (8.6-10.3) mg/dl Magnesium (1.7-2.4) mg/dl Total Bilirubin (0.2-1.0) mg/dl Direct Bilirubin (0-0.2) mg/dl AST (13-39) U/L ALT (7-52) U/L Alkaline Phosphatase (34-104) U/L Total Protein (6.0-8.3) gm/dl Albumin (3.4-5.0) gm/dl Procalcitonin < 0.05 (0-0.5) ng/ml Urine Color Yellow Urine Appearance Clear (Clear) Urine pH 6.5 (4.5-7.5) Ur Specific [place] 1.031 H (1.000-1.030) Urine Protein Negative (Negative) Urine Glucose (UA) 3+ H (Negative) Urine Ketones 1+ H (Negative) Urine Blood 3+ H (Negative) Urine Nitrite Negative (Negative) Urine Bilirubin Negative (Negative) Urine Urobilinogen Negative (Negative) Ur Leukocyte Esterase Negative (Negative) Urine WBC (Auto) 1-5 (0-5) /hpf Urine RBC (Auto) >30 H (0-4) /hpf U Hyaline Cast (Auto) 0 (0-5) /lpf U Epithel Cells (Auto) 0-5 (0-5) /lpf Urine Bacteria (Auto) Negative (Negative) SARS-CoV-2, RNA, NAAT (NEGATIVE) 06/29/22 Range/Units 22:39 WBC (4.8-10.8) K/ul RBC (4.70-6.10) M/uL Hgb (14.0-18.0) g/dl Hct (42.0-52.0) % MCV (80.0-100.0) fL MCH (25.0-34.0) pg MCHC (32.0-36.0) g/dL RDW Std Deviation (36.4-46.3) fL RDW Coeff of Mary Ellen (11.5-14.5) % Plt Count (130-400) K/uL MPV (9.4-12.4) fL Immature Gran % (Auto) % Neut % (Auto) % Lymph % (Auto) % [place] % (Auto) % Eos % (Auto) % Baso % (Auto) % Neut # (Auto) (1.40-6.50) K/uL Lymph # (Auto) (1.2-3.4) K/uL [place] # (Auto) (0.11-0.59) K/uL Eos # (Auto) (0-0.50) K/uL Baso # (Auto) (0-0.2) K/uL Immature Gran # (Auto) (0.01-0.20) K/uL PT (9.0-12.0) Seconds INR (0.9-1.1) Sodium (136-145) mmol/L Potassium (3.5-5.1) mmol/L Chloride (98-107) mmol/L Carbon Dioxide (21-32) mmol/L Anion Gap (3-11) BUN (6-23) mg/dl Creatinine (0.6-1.4) mg/dl Est Cr Clr Drug Dosing ml/min Est GFR ( Amer) ml/min Est GFR (Non-Af Amer) ml/min BUN/Creatinine Ratio (10-20) Glucose (70-99(Fasting)) mg/dl Lactate (0.4-2.0) mmol/L Calcium (8.6-10.3) mg/dl Magnesium (1.7-2.4) mg/dl Total Bilirubin (0.2-1.0) mg/dl Direct Bilirubin (0-0.2) mg/dl AST (13-39) U/L ALT (7-52) U/L Alkaline Phosphatase (34-104) U/L Total Protein (6.0-8.3) gm/dl Albumin (3.4-5.0) gm/dl Procalcitonin (0-0.5) ng/ml Urine Color Urine Appearance (Clear) Urine pH (4.5-7.5) Ur Specific [place] (1.000-1.030) Urine Protein (Negative) Urine Glucose (UA) (Negative) Urine Ketones (Negative) Urine Blood (Negative) Urine Nitrite (Negative) Urine Bilirubin (Negative) Urine Urobilinogen (Negative) Ur Leukocyte Esterase (Negative) Urine WBC (Auto) (0-5) /hpf Urine RBC (Auto) (0-4) /hpf U Hyaline Cast (Auto) (0-5) /lpf U Epithel Cells (Auto) (0-5) /lpf Urine Bacteria (Auto) (Negative) SARS-CoV-2, RNA, NAAT NEGATIVE (NEGATIVE) Administered Medications Discontinued Medications Sodium Chloride (Nss 1000ml) 1,000 mls @ 999 mls/hr IV .Q1H1M [facility] Stop: 06/29/22 23:30 Last Admin: 06/29/22 23:58 Dose: 999 mls/hr Documented By: Infusion: 06/29/22 23:20 Dose: 0 mls/hr Documented By: Admin: 06/29/22 21:47 Dose: 999 mls/hr Documented By: GLO Sodium Chloride (Nss 1000ml) 1,000 mls @ 999 mls/hr IV .Q1H1M [facility] Stop: 06/29/22 22:30 Last Infusion: 06/29/22 23:21 Dose: 0 mls/hr Documented By: Admin: 06/29/22 21:47 Dose: 999 mls/hr Documented By: GLO Vancomycin HCl 2,000 mg/ (Sodium Chloride) 540 mls @ 200 mls/hr IV NOW ONE Stop: 06/30/22 00:55 Last Admin: 06/29/22 23:33 Dose: 200 mls/hr Documented By: GLO Piperacillin Sod/Tazobactam Sod (Zosyn) 4.5 gm in 120 mls @ 240 mls/hr IV NOW ONE Stop: 06/29/22 22:43 Last Infusion: 06/29/22 23:21 Dose: 0 mls/hr Documented By: Admin: 06/29/22 22:37 Dose: 240 mls/hr Documented By: GLO Sodium Chloride (Nss 1000ml) 1,000 mls @ 999 mls/hr IV .Q1H1M ONE Stop: 06/29/22 23:20 Last Admin: 06/29/22 22:28 Dose: Not Given Documented By: GLO Discharge Plan Visit Data Chief Complaint: Swelling/Edema to Extremity Stated Complaint: R FOOT SWELLING, CALF SORE ED Provider: Khoa Bullard Discharge Problem: Cellulitis of foot Discharge Instructions Interventions: ED Discharge Assessment Last Done: 06/30/22 00:35
[2022-06-29] MEDS: SODIUM CHLORIDE 0.9% 1000ML 1,000 ML IV SCH ×2 (21:47→23:58)
[2022-06-29 22:06] LABS: Basophils # (auto) 0.03 K/uL (0-0.2); Basophils % (auto) 0.3 %; Eosinophils # (auto) 0.01 K/uL (0-0.50); Eosinophils % (auto) 0.1 %; Hemoglobin 13.4 g/dl (14.0-18.0); Immature Granulocytes # (auto) 0.02 K/uL (0.01-0.20); Immature Granulocytes % (auto) 0.2 %; Lymphocytes # (auto) 1.56 K/uL (1.2-3.4); Lymphocytes % (auto) 17.8 %; Mean Corpuscular Hemoglobin 31.5 pg (25.0-34.0); Mean Corpuscular Hgb Conc 35.3 g/dL (32.0-36.0); Mean Corpuscular Volume 89.4 fL (80.0-100.0); Mean Platelet Volume 10.1 fL (9.4-12.4); Monocytes # (auto) 0.62 K/uL (0.11-0.59); Monocytes % (auto) 7.1 %; Neutrophils # (auto) 6.52 K/uL (1.40-6.50); Neutrophils % (auto) 74.5 %; Platelet Count 151 K/uL (130-400); RDW Coefficient of Variation 12.5 % (11.5-14.5); RDW Standard Deviation 40.5 fL (36.4-46.3); Red Blood Count 4.25 M/uL (4.70-6.10); White Blood Count 8.76 K/ul (4.8-10.8)
[2022-06-29] MEDS ORDERED: PIPERACILLIN/TAZOBACTAM 4.5 GM/120 ML BAG IV ONE (22:14)
[2022-06-29] MEDS ORDERED: VANCOMYCIN CONSULT ACTIVE PRN ×2 (22:14→23:30)
[2022-06-29] MEDS ORDERED: VANCOMYCIN HCL 2,000 MG in SODIUM CHLORIDE 0.9% 500 ML IV ONE (22:14)
[2022-06-29 22:17] LABS: INR 1.1 (0.9-1.1); Prothrombin Time 11.4 Seconds (9.0-12.0)
[2022-06-29 22:18] LABS: Albumin Level 4.2 gm/dl (3.4-5.0); BUN Creatinine Ratio 14.3 (10-20); Bilirubin Direct 0.2 mg/dl (0-0.2); Bilirubin,Total 1.2 mg/dl (0.2-1.0); Calcium 9.3 mg/dl (8.6-10.3); Creatinine Clr Calc Pharmacy 85.4 ml/min; Est GFR (Non-African American) 64.7 ml/min; Magnesium 1.8 mg/dl (1.7-2.4); Potassium 3.5 mmol/L (3.5-5.1); Total Protein 7.7 gm/dl (6.0-8.3)
[2022-06-29] MEDS ORDERED: SODIUM CHLORIDE 0.9% 1000ML 1,000 ML IV ONE (22:20)
[2022-06-29 22:34] LABS: Appearance Urine Clear (Clear); Bacteria Urine Automated Negative (Negative); Bilirubin Urine Negative (Negative); Blood Urine 3+ (Negative); Cast Urine Automated 0 /lpf (0-5); Color Urine Yellow; Epithelial Cell Urine Auto 0-5 /lpf (0-5); Glucose Urine UA 3+ (Negative); Ketones Urine 1+ (Negative); Leukocyte Esterase Urine Negative (Negative); Nitrite Urine Negative (Negative); Protein Urine Negative (Negative); RBC Urine Automated >30 /hpf (0-4); Specific Gravity Urine 1.031 (1.000-1.030); Urobilinogen Urine Negative (Negative); pH Urine 6.5 (4.5-7.5)
--- NOTE | 2022-06-29 23:28 | History & Physical Report ---
Date of Service June 29, 2022 Assessment & Plan (1) Diabetic infection of right foot: (2) Hyperlipidemia: (3) Mild renal insufficiency: (4) Hypertension: (5) Type 2 diabetes mellitus: (6) Hypertriglyceridemia: Plan Recurrent diabetic infection of right foot- Previously grew MSSA, and group C beta strep resistant to azithromycin, clindamycin and erythromycin. We will continue vancomycin IV and Zosyn IV begun in the ED CT scan negative for osteomyelitis at previous admission from 06/08-06/11/2022 Right lower extremity edema- Order venous Doppler to assess for possible DVT Diabetes mellitus- Continue empagliflozin 25 mg daily Hold metformin [address] on Accu-Cheks before meals and at bedtime with NovoLog coverage per scale Check hemoglobin A1c Hypertension/renal insufficiency- Sodium 133, potassium 3.7 Creatinine 1.26, with base 0.97 Hold lisinopril/HCTZ Repeat laboratories in a.m. Patient did receive 3 L normal saline in the ED History of Present Illness Chief Complaint: The patient presents to the emergency department with a recurrence of right great toe infection, that he was initially admitted for on 06/08-06/11/2022, had improvement, and then when he went back to work 4 days ago he was wearing his boots, was standing up for long interval time, and then developed a callus. He remove the callus with his fingers, and shortly thereafter became diffusely red and swollen. He complains more of right calf pain than pain in his right foot or great toe Primary Care Provider: No Kim MD The patient is a 52-year-old male with a past medical history including diabetes mellitus type 2, hypertriglyceridemia, hypertension, mild renal deficiency, hyperlipidemia, chronic pain, COVID-19, tachycardia and cellulitis of right great toe. He was most recently mated from 06/08-06/11/2022 for right great toe cellulitis, which had been having a nonhealing ulcer over the previous month at that time. CT evidence at that time was negative for for osteomyelitis. He did have right toe cultures performed which grew group C beta strep, MSSA and a probable pako gram-negative bacilli. He was discharged on penicillin V 500 mg every 6 hours for 10 days and Bactrim DS every 12 hours for 10 days. As noted above, the patient had had significant improvement, until he went to work with standing upright and his hard boots, and developed recurrent callus and then cellulitis over his right great toe and dorsum of foot. Allergies Allergy/AdvReac Type Severity Reaction Status Date / Time No Known Allergies Allergy Unknown Verified 06/29/22 21:37 Home Medications Medication Instructions Recorded Confirmed Type pen needle, diabetic 31 gauge x #100 ea 10/13/18 06/17/22 Rx 3/16" (BD Ultra-Fine Mini Pen Needle) metformin 500 mg tablet,extended 1,000 mg PO BID #360 tabs 08/10/21 06/29/22 Rx release 24 hr lisinopril 20 1 tab PO QAM #90 tabs 11/18/21 06/29/22 Rx mg-hydrochlorothiazide 25 mg tablet empagliflozin 25 mg tablet 25 mg PO QAM #90 tabs 05/30/22 06/29/22 Rx (Jardiance) Past Med/Surg History Medical History (Updated 06/30/22 @ 00:38 by Pedro Luis Cuadra MD) GERD (gastroesophageal reflux disease) HX-UNDER CONTROL Hyperlipidemia Hypertension Hypertriglyceridemia Interstitial cystitis Mild renal insufficiency Type 2 diabetes mellitus Surgical History History of bladder surgery CYSTOSCOPY X 2 Family History Father Hypertension Stroke Grandmother (Paternal) Family history of diabetes mellitus Denies family history of Ovarian cancer Prostate cancer Myocardial infarction Breast cancer Colorectal cancer Social History Smoking Status: Light tobacco smoker Tobacco Type: Smokeless Tobacco (Dip or Chew) Second Hand Exposure: Yes; Hx Alcohol Use: Yes Alcohol type: hard liquor Hx Substance Use: No Preferred Language: Armenian Communication Ability: Effective Canvassing Manager Required: No Beliefs That Will Affect Care: None marital status: Current Living Situation: Family Current Living Situation Comment: and son current occupational status: employed current occupation: [employer] Feels Safe at Home: Yes Dental Care, Regularly: No Physical Activity Frequency: Daily Seatbelt Use: always Sunscreen Use: No Assistive Devices: Crutches Review of Systems Review of Systems: The patient denies chest pain, palpitations, shortness of breath, dyspnea on exertion, cough, sore throat, fevers, chills, sweats, weight change, nausea, vomiting, diarrhea , constipation, abdominal pain, pelvic pain, blood in urine or stool, dysuria, urinary frequency or urgency, lightheadedness, dizziness, headache, memory loss, loss of consciousness, rash, abnormal bruising or bleeding, imbalance, focal or generalized weakness, numbness or tingling in arms, generalized arthralgias or myalgias, back or neck pain, or night sweats. The review of systems is otherwise negative other than for that already noted above, and at least 10 systems have been reviewed. Physical Exam Physical Exam: The patient is awake, alert and oriented 3, well developed and well nourished, normocephalic and atraumatic, lying in bed and in no acute distress. HEENT--PERRL, EOMI, mucous membranes and oropharynx normal. Neck--supple. No JVD. No bruits. Thyroid normal, trachea midline, no adenopathy. Heart--normal S1 and S2. No murmurs, rubs or gallops. Lungs--clear bilaterally, no respiratory distress, no accessory muscle use. Abdomen--normal bowel sounds and soft. Nontender. Nondistended, no hernias or masses, no organomegaly. Extremities--good distal pulses present bilaterally. Left lower extremity normal. Right lower extremity with 1+ pretibial and pedal pitting edema. Ulceration of right great toe with erythema extending from great toe along dorsum of foot Dermatologic--normal skin turgor, normal color, no abnormal lymph nodes, no rash. Neurologic--cranial nerves II through XII grossly intact. Rheumatologic--normal range of motion. Psychiatric--normal affect. Results & Data Results & Data Vital Signs (Past 12 Hours) Vital Signs Temp Pulse Pulse Resp BP BP Pulse Ox 06/29/22 22:00 86 23 137/78 99 06/29/22 21:57 86 19 99 06/29/22 21:56 87 06/29/22 21:52 85 14 128/69 97 06/29/22 21:23 84 12 97 06/29/22 21:08 37.6 C H 103 H 18 117/75 100 O2 Del Method 06/29/22 22:00 06/29/22 21:57 06/29/22 21:56 06/29/22 21:52 Room Air 06/29/22 21:23 Room Air 06/29/22 21:08 Room Air Laboratory Results Laboratory Results WBC 8.76 K/ul (4.8-10.8) 06/29/22 21: RBC 4.25 M/uL (4.70-6.10) L 06/29/22 21:30 Hgb 13.4 g/dl (14.0-18.0) L 06/29/22 21: Hct 38.0 % (42.0-52.0) L 06/29/22 21: MCV 89.4 fL (80.0-100.0) 06/29/22 21: MCH 31.5 pg (25.0-34.0) 06/29/22: MCHC 35.3 g/dL (32.0-36.0) 06/29/22: RDW Std Deviation 40.5 fL (36.4-46.3) 06/29/22: RDW Coeff of Mary Ellen 12.5 % (11.5-14.5) 06/29/22: Plt Count 151 K/uL (130-400) 06/29/22 21: MPV 10.1 fL (9.4-12.4) 06/29/22: Immature Gran % (Auto) 0.2 % 06/29/22: Neut % (Auto) 74.5 % 06/29/22: Lymph % (Auto) 17.8 % 06/29/22: Chase % (Auto) 7.1 % 06/29/22: Eos % (Auto) 0.1 % 06/29/22: Baso % (Auto) 0.3 % 06/29/22: Neut # (Auto) 6.52 K/uL (1.40-6.50) H 06/29/22: Lymph # (Auto) 1.56 K/uL (1.2-3.4) 06/29/22: Chase # (Auto) 0.62 K/uL (0.11-0.59) H 06/29/22: Eos # (Auto) 0.01 K/uL (0-0.50) 06/29/22 21:30 Baso # (Auto) 0.03 K/uL (0-0.2) 06/29/22 21:30 Immature Gran # (Auto) 0.02 K/uL (0.01-0.20) 06/29/22 21:30 PT 11.4 Seconds (9.0-12.0) 06/29/22 21:30 INR 1.1 (0.9-1.1) 06/29/22 21: Sodium 131 mmol/L (136-145) L 06/29/22 21:30 Potassium 3.5 mmol/L (3.5-5.1) 06/29/22 21: Chloride 95 mmol/L (98-107) L 06/29/22 21: Carbon Dioxide 27 mmol/L (21-32) 06/29/22 21: Anion Gap 9 (3-11) 06/29/22 21: BUN 18 mg/dl (6-23) 06/29/22 21: Creatinine 1.26 mg/dl (0.6-1.4) 06/29/22 21:30 Est Cr Clr Drug Dosing 85.4 ml/min 06/29/22 21:30 Est GFR ( Amer) 75.0 ml/min 06/29/22 21:30 Est GFR (Non-Af Amer) 64.7 ml/min 06/29/22 21:30 BUN/Creatinine Ratio 14.3 (10-20) 06/29/22 21: Glucose 251 mg/dl (70-99(Fasting)) H 06/29/22 21: Lactate 1.3 mmol/L (0.4-2.0) 06/29/22 21: Calcium 9.3 mg/dl (8.6-10.3) 06/29/22 21: Magnesium 1.8 mg/dl (1.7-2.4) 06/29/22 21: Total Bilirubin 1.2 mg/dl (0.2-1.0) H 06/29/22 21:30 Direct Bilirubin 0.2 mg/dl (0-0.2) 06/29/22 21:30 AST 20 U/L (13-39) 06/29/22 21:30 ALT 21 U/L (7-52) 06/29/22 21:30 Alkaline Phosphatase 81 U/L (34-104) 06/29/22 21:30 Total Protein 7.7 gm/dl (6.0-8.3) 06/29/22 21:30 Albumin 4.2 gm/dl (3.4-5.0) 06/29/22 21:30 Procalcitonin < 0.05 ng/ml (0-0.5) 06/29/22 21:30 Urine Color Yellow 06/29/22 22:20 Urine Appearance Clear (Clear) 06/29/22 22:20 Urine pH 6.5 (4.5-7.5) 06/29/22 22:20 Ur Specific [place] 1.031 (1.000-1.030) H 06/29/22 22:20 Urine Protein Negative (Negative) 06/29/22 22:20 Urine Glucose (UA) 3+ (Negative) H 06/29/22 22:20 Urine Ketones 1+ (Negative) H 06/29/22 22:20 Urine Blood 3+ (Negative) H 06/29/22 22:20 Urine Nitrite Negative (Negative) 06/29/22 22:20 Urine Bilirubin Negative (Negative) 06/29/22 22:20 Urine Urobilinogen Negative (Negative) 06/29/22 22:20 Ur Leukocyte Esterase Negative (Negative) 06/29/22 22:20 Urine WBC (Auto) 1-5 /hpf (0-5) 06/29/22 22:20 Urine RBC (Auto) >30 /hpf (0-4) H 06/29/22 22:20 U Hyaline Cast (Auto) 0 /lpf (0-5) 06/29/22 22:20 U Epithel Cells (Auto) 0-5 /lpf (0-5) 06/29/22 22:20 Urine Bacteria (Auto) Negative (Negative) 06/29/22 22:20 SARS-CoV-2, RNA, NAAT NEGATIVE (NEGATIVE) 06/29/22 22:39 Code Status & VTE Plan Code Status Full code VTE Prophylaxis Plan VTE Prophylaxis will be ordered: Yes PG Care Time/CCT Total # of Minutes Spent Total Time Spent with Patient: Total time spent is greater than 50% in coordination of care (as documented) at patient's floor/unit and/or counseling patient: Coding Level of Care Code 62127 INT INP/OBS CARE MIN Diagnoses Diabetic infection of right foot E11.628; L08.9 Hyperlipidemia E78.5 Mild renal insufficiency N28.9 Hypertension I10 Type 2 diabetes mellitus E11.9 Hypertriglyceridemia E78.1
[2022-06-29] MEDS ORDERED: VANCOMYCIN HCL 1,500 MG in SODIUM CHLORIDE 0.9% 500 ML IV SCH (23:30)
--- NOTE | 2022-06-30 00:48 | Pharmacy Report ---
Pharmacy PK ABX Note - Date of Service June 30, 2022 - Assessment and Plan Assessment 52 year old M receiving VANCOMYCIN/ZOSYN for treatment of LLE cellulitis. Pertinent microbiologic data includes: Blood cx x 2 pending. Day # 1 of antimicrobial therapy. Plan Vancomycin * Loading dose: 2000 mg IV x 1 * Maintenance dose: 1000 mg IV every 12 hours * Regimen is predicted to achieve target AUC/THEODORA of 400-600 mg/L.hr Pharmacy will continue to follow and will adjust dose/frequency as necessary. Thank you. Pharmacy has transitioned to AUC monitoring for vancomycin. AUC/THEODORA is the preferred PK/PD target and is associated with decreased risk of nephrotoxicity compared to traditional trough targets.
[2022-06-30] MEDS ORDERED: GLUCAGON FOR INJ 1 MG VIAL SQ PRN (01:31)
[2022-06-30] MEDS ORDERED: GLUCOSE 10 TAB/TUBE PO PRN (01:31)
[2022-06-30] MEDS ORDERED: CARBOHYDRATES FOR HYPOGLYCEMIA PO PRN (01:31)
[2022-06-30] MEDS ORDERED: ACETAMINOPHEN 325 MG TAB PO PRN (01:31)
[2022-06-30] MEDS ORDERED: ONDANSETRON INJ 2 MG/ML 2 ML VIAL IV PRN (01:31)
[2022-06-30] MEDS ORDERED: DEXTROSE 50% 50 ML SYRINGE IV PRN (01:31)
[2022-06-30] MEDS ORDERED: GLUCOSE 40% GEL 15 GM TUBE PO PRN (01:31)
--- NOTE | 2022-06-30 02:37 | Ultrasound Report ---
Exam(s): US VENOUS RIGHT LOWER EXTREMITY EXAM: US Duplex Right Lower Extremity Veins CLINICAL HISTORY: RLE edema. TECHNIQUE: Real-time duplex ultrasound scan of the right lower extremity veins integrating B-mode two-dimensional vascular structure, Doppler spectral analysis, color flow Doppler imaging and compression. COMPARISON: No relevant prior studies available. FINDINGS: Deep veins: Unremarkable. No DVT in the visualized common femoral, femoral, proximal deep femoral or popliteal veins. The veins demonstrate normal color flow, are normally compressible, with normal phasic flow and/or augmentation response. The interrogated calf veins are patent. Superficial veins: Unremarkable. No thrombus in the saphenofemoral junction. Soft tissues: Subcutaneous edema noted at the right calf. No popliteal cyst. Lymph nodes: Incidental right inguinal lymph node measuring up to 1 cm in short axis diameter but with a maintained central fatty hilum. IMPRESSION: No evidence for deep vein thrombosis involving the right lower extremity. Electronically signed by: Freddy Low MD 06/30/22 02:37 AM
[2022-06-30] MEDS: PIPERACILLIN/TAZOBACTAM 4.5 GM in DEXTROSE 5% 100 ML IV SCH ×3 (04:01→20:20)
--- NOTE | 2022-06-30 07:23 | XRay Report ---
XR foot RT min 3V routine CLINICAL HISTORY: 1st digit infection/swelling TECHNIQUE: 3 views of the right foot were obtained. Comparison: None available at the time of this dictation. FINDINGS: No evidence of bony erosion is seen. The joint spaces are well preserved. Soft tissue swelling is see n about the first digit. IMPRESSION: No radiographic evidence of osteomyelitis is by soft tissue swelling about the first digit. If clinic al concern remains, MRI is a more sensitive modality. ACT 112: Negative or not required by law. Electronically signed by: Raphael Wiggins M.D. 06/30/2022 7:21 AM
[2022-06-30 07:47] LABS: Basophils # (auto) 0.03 K/uL (0-0.2); Basophils % (auto) 0.4 %; Eosinophils # (auto) 0.04 K/uL (0-0.50); Eosinophils % (auto) 0.6 %; Hematocrit (blood only) 36.6 % (42.0-52.0); Hemoglobin 12.4 g/dl (14.0-18.0); Immature Granulocytes # (auto) 0.03 K/uL (0.01-0.20); Immature Granulocytes % (auto) 0.4 %; Lymphocytes # (auto) 1.91 K/uL (1.2-3.4); Lymphocytes % (auto) 26.6 %; Mean Corpuscular Hemoglobin 31.2 pg (25.0-34.0); Mean Corpuscular Hgb Conc 33.9 g/dL (32.0-36.0); Monocytes # (auto) 0.59 K/uL (0.11-0.59); Monocytes % (auto) 8.2 %; Neutrophils # (auto) 4.58 K/uL (1.40-6.50); Neutrophils % (auto) 63.8 %; Platelet Count 142 K/uL (130-400); RDW Coefficient of Variation 12.4 % (11.5-14.5); RDW Standard Deviation 41.8 fL (36.4-46.3); Red Blood Count 3.98 M/uL (4.70-6.10); White Blood Count 7.18 K/ul (4.8-10.8)
[2022-06-30] MEDS: VANCOMYCIN HCL 1,000 MG in SODIUM CHLORIDE 0.9% 250 ML IV SCH ×2 (07:54→20:19)
[2022-06-30] MEDS ORDERED: EMPAGLIFLOZIN 25 MG TAB PO SCH (09:00)
[2022-06-30 09:21] LABS: Estimated Average Glucose 206 mg/dl; Hemoglobin A1C 8.8 % (4.5-5.6)
[2022-06-30] MEDS: INSULIN ASPART PER UNIT CHARGE SC SCH ×4 (09:28→20:26)
[2022-06-30 09:50] LABS: Albumin Level 3.7 gm/dl (3.4-5.0); Bilirubin,Total 1.3 mg/dl (0.2-1.0); Calcium 8.3 mg/dl (8.6-10.3)
[2022-06-30 09:56] LABS: Albumin Globulin Ratio 1.2 (0.9-2); BUN Creatinine Ratio 13.2 (10-20); Creatinine Clr Calc Pharmacy 93.7 ml/min; Est GFR (African American) 92.4 ml/min; Est GFR (Non-African American) 79.7 ml/min; Globulin 3.1 gm/dl (2.5-4.0); Total Protein 6.8 gm/dl (6.0-8.3)
--- NOTE | 2022-06-30 16:50 | Hospitalist Progress Note ---
Date of Service June 30, 2022 Assessment & Plan (1) Diabetic infection of right foot: Plan: Previously grew MSSA, and group C beta strep resistant to azithromycin, clindamycin and erythromycin. Continue vancomycin IV and Zosyn IV begun in the ED CT scan negative for osteomyelitis at previous admission from 06/08-06/11/2022 Venous doppler no evidence of DVT (2) Mild renal insufficiency: Plan: - Hold Lisinopril/HCTZ - BP stable 116/69 (3) Hypertension: Plan: chronic and stable held Lisinopril/HCTZ (4) Type 2 diabetes mellitus: Plan: Continue Jardiance 25 mg daily Hold metformin [address] on Accu-Cheks before meals and at bedtime with NovoLog coverage per scale Hemoglobin A1c - reviewed 8.8 (10.9) (5) Hypertriglyceridemia: Plan: Chronic Last TG level was 359 Admission and Anticipated Discharge Date Admission Date: June 29, 2022 Subjective Patient was seen this afternoon. He was sitting up in bed eating lunch. He states his right toe is slightly less swollen. Review of Systems Review of Systems: The patient denies chest pain, palpitations, shortness of breath, dyspnea on exertion, cough, sore throat, fevers, chills, sweats, weight change, nausea, vomiting, diarrhea , constipation, abdominal pain, pelvic pain, blood in urine or stool, dysuria, urinary frequency or urgency, lightheadedness, dizziness, headache, memory loss, loss of consciousness, rash, abnormal bruising or bleeding, imbalance, focal or generalized weakness, numbness or tingling in arms, generalized arthralgias or myalgias, back or neck pain, or night sweats. The review of systems is otherwise negative other than for that already noted above, and at least 10 systems have been reviewed. Physical Exam Constitutional: WD/WN, vitals as above Neck: trachea midline, no thyromegaly Respiratory: normal respiratory effort, lungs clear to auscultation Cardiovascular: RRR, no murmur, no edema Gastrointestinal (Abdomen): normal bowel sounds, soft, nontender, no hepatosplenomegaly Skin: right 1st toe swollen erythematous with purulent discharge on plantar aspect of mid first toe onychomycosis toe nails trace edema lower extremities no calf tenderness DP/PT pulses +2 symmetric Psychiatric: A+Ox3, euthymic affect Results & Data Results & Data Vital Signs (Past 12 Hours) Vital Signs Temp Pulse Pulse Resp BP Pulse Ox O2 Del Method 06/30/22 15:37 37.3 C 73 17 116/69 97 Room Air 06/30/22 07:19 36.6 C 74 17 112/73 97 Room Air Diagnostic Findings Foot X-Ray 06/29/22 21:30 XR foot RT min 3V routine CLINICAL HISTORY: 1st digit infection/swelling TECHNIQUE: 3 views of the right foot were obtained. Comparison: None available at the time of this dictation. FINDINGS: No evidence of bony erosion is seen. The joint spaces are well preserved. Soft tissue swelling is seen about the first digit. IMPRESSION: No radiographic evidence of osteomyelitis is by soft tissue swelling about the first digit. If clinical concern remains, MRI is a more sensitive modality. ACT 112: Negative or not required by law. Electronically signed by: Raphael Wiggins M.D. 06/30/2022 7:21 AM Venous Doppler Study 06/29/22 23:15 Exam(s): US VENOUS RIGHT LOWER EXTREMITY EXAM: US Duplex Right Lower Extremity Veins CLINICAL HISTORY: RLE edema. TECHNIQUE: Real-time duplex ultrasound scan of the right lower extremity veins integrating B-mode two-dimensional vascular structure, Doppler spectral analysis, color flow Doppler imaging and compression. COMPARISON: No relevant prior studies available. FINDINGS: Deep veins: Unremarkable. No DVT in the visualized common femoral, femoral, proximal deep femoral or popliteal veins. The veins demonstrate normal color flow, are normally compressible, with normal phasic flow and/or augmentation response. The interrogated calf veins are patent. Superficial veins: Unremarkable. No thrombus in the saphenofemoral junction. Soft tissues: Subcutaneous edema noted at the right calf. No popliteal cyst. Lymph nodes: Incidental right inguinal lymph node measuring up to 1 cm in short axis diameter but with a maintained central fatty hilum. IMPRESSION: No evidence for deep vein thrombosis involving the right lower extremity. Electronically signed by: Freddy Low MD 06/30/22 02:37 AM PG Care Time/CCT Total # of Minutes Spent Total Time Spent with Patient: Total time spent is greater than 50% in coordination of care (as documented) at patient's floor/unit and/or counseling patient: Coding Level of Care Code 66300 SUB INP/OBS CARE 2/35MIN Diagnoses Diabetic infection of right foot E11.628; L08.9 Mild renal insufficiency N28.9 Hypertension I10 Type 2 diabetes mellitus E11.9 Hypertriglyceridemia E78.1
--- NOTE | 2022-06-30 21:48 | Orthopedic Consultation ---
Date of Consultation June 30, 2022 Assessment & Plan (1) Ulcer: Patient seen, evaluated, and treated. A thorough evaluation of patient's wound was done in detail.After evaluation it was decidedthe wound wouldbe debrided. Sharp debridementof right foot ulcerwithout incident. See procedure notedbelow. Wound culture taken of Right Due to depth of wound which probes to bone MRI order to rule out osteomyelitis. Off-loading is a critical part of this patient's management. Dispensed order for off loading surgical shoe. To offload or remove pressure to the wound is essential. Patient will require off loading diabetic shoe with custom off loading insert which can be made available upon discharge. Will continue to follow while inhouse. Thank you for allowing me to participate in this Patient's care. (2) Cellulitis of foot: (3) Diabetic infection of right foot: History of Present Illness Attending Physician: Donnie Estrella MD History of Present Illness Patient is a type II diabetic 52-year-old male seen at bedside for a right diabetic foot ulcer. Patient has a past medical history of diabetes mellitus type 2, hypertriglyceridemia, hypertension, mild renal deficiency, hyperlipidemia, chronic pain, COVID-19, tachycardia and cellulitis of right great toe.Patient previously treated at [facility] from 06/08-06/11/2022 for right great toe cellulitis and a nonhealing ulcer. CT evidence at that time was negative for for osteomyelitis. Right toe cultures performed from 06/08/22 grew group C beta strep, MSSA and a probable pako gram-negative bacilli. He was discharged on penicillin V 500 mg every 6 hours for 10 days and Bactrim DS every 12 hours for 10 days. Patient had had significant improvement, until he went to work with standing upright and his hard boots, and developed recurrent callus and then cellulitis over his right great toe and dorsum of foot. Allergies Allergy/AdvReac Type Severity Reaction Status Date / Time No Known Allergies Allergy Unknown Verified 06/29/22 21:37 Home Medications Medication Instructions Recorded Confirmed Type pen needle, diabetic 31 gauge x #100 ea 10/13/18 06/17/22 Rx 3/16" (BD Ultra-Fine Mini Pen Needle) metformin 500 mg tablet,extended 1,000 mg PO BID #360 tabs 08/10/21 06/29/22 Rx release 24 hr lisinopril 20 1 tab PO QAM #90 tabs 11/18/21 06/29/22 Rx mg-hydrochlorothiazide 25 mg tablet empagliflozin 25 mg tablet 25 mg PO QAM #90 tabs 05/30/22 06/29/22 Rx (Jardiance) Patient History Medical History GERD (gastroesophageal reflux disease) HX-UNDER CONTROL Hyperlipidemia Hypertension Hypertriglyceridemia Interstitial cystitis Mild renal insufficiency Type 2 diabetes mellitus Surgical History History of bladder surgery CYSTOSCOPY X 2 Family History Father Hypertension Stroke Grandmother (Paternal) Family history of diabetes mellitus Denies family history of Ovarian cancer Prostate cancer Myocardial infarction Breast cancer Colorectal cancer Social History Smoking Status: Never smoker Tobacco Type: Smokeless Tobacco (Dip or Chew) Second Hand Exposure: Yes; Hx Alcohol Use: Yes Alcohol type: hard liquor Hx Substance Use: No Preferred Language: [place] Verdean Communication Ability: Effective Radioisotope Technologist Required: No Beliefs That Will Affect Care: None marital status: Current Living Situation: Family Current Living Situation Comment: and son current occupational status: employed current occupation: [employer] Feels Safe at Home: Yes Dental Care, Regularly: No Physical Activity Frequency: Daily Seatbelt Use: always Sunscreen Use: No Assistive Devices: Crutches Review of Systems Review of Systems: All systems reviewed & are unremarkable except as noted in HPI & below Physical Exam Constitutional: well developed and well nourished Eyes: normal visual palomares by confrontation ENMT: Ears: + external ear abnormality Neck: normal visual inspection Respiratory: normal respiratory effort Cardiovascular: Rate/Rhythm: regular rate and regular rhythm Musculoskeletal: Extremities: extremities normal to inspection and strength 5/5 throughout Skin: Focused Exam: Wound location:Right Hallux IPJ Wound base color and depth:Full-thicknessprobes to bone Wound size (cm):0.6x0.6x 0.6cm Odor:No malodor Drainage:mild purulence Undermining:None Borders:Hyperkeratotic Neurologic: Absent epicritic sensation to bilateral feet Psychiatric: Orientation: alert and oriented x 3 Results & Data Vital Signs (Past 12 Hours) Vital Signs Temp Pulse Resp BP Pulse Ox O2 Del Method 06/30/22 20:09 37.1 C 76 18 129/74 97 Room Air 06/30/22 15:37 37.3 C 73 17 116/69 97 Room Air
[2022-06-30] MEDS ORDERED: GADOBUTROL 65ML VIAL IV ONE (22:50)
--- NOTE | 2022-07-01 00:06 | Magnetic Resonance Report ---
Exam(s): MRI RIGHT FOOT W/WO Contrast IV Amt: 9.5cc gadavist EXAM: MR Right Lower Extremity Without and With Intravenous Contrast, Foot CLINICAL HISTORY: Reason for exam: Rule out osteomyelitis great toe right foot. TECHNIQUE: Multiplanar magnetic resonance images of the right foot without and with intravenous contrast. CONTRAST: Patient received 9.5cc gadavist of IV contrast COMPARISON: 06/08/2022. FINDINGS: TENDONS/Muscles : The visualized tendons and musculature unremarkable. Bones/joints: There is less severe edema along the dorsum of the fusion diffusely along the fifth metatarsal bone. Soft tissues: Extensive edema involving the proximal and distal phalanx of the first toe with edema and enhancement consistent with cellulitis in the surrounding soft tissues. There is enhancement within the proximal and distal phalanx of the first toe following contrast administration consistent with osteomyelitis. Otherwise normal alignment. No acute fracture. There is questionable mild ulceration along the plantar region and medial aspect of the interphalangeal joint of the first toe. IMPRESSION: 1. Osteomyelitis involving the proximal and distal phalanx of the first toe as described. 2. No soft tissue abscess. Electronically signed by: Sangita Butcher MD 07/01/22 00:05 AM
[2022-07-01] MEDS: PIPERACILLIN/TAZOBACTAM 4.5 GM in DEXTROSE 5% 100 ML IV SCH ×3 (04:23→19:23)
--- NOTE | 2022-07-01 05:34 | Electrocardiogram Report ---
Test Reason : Blood Pressure : / mmHG Vent. Rate : 090 BPM Atrial Rate : 090 BPM P-R Int : 146 ms QRS Dur : 112 ms QT Int : 338 ms P-R-T Axes : 038 029 057 degrees QTc Int : 413 ms Normal sinus rhythm Incomplete right bundle branch block Borderline ECG When compared with ECG of 08-JUN-2022 18:48, No significant change was found Confirmed by Shashank Gamboa ([id number]) on 07/01/2022 5:33:22 AM Referred By: REFERRED SELF Confirmed By:Shashank Gamboa
[2022-07-01] MEDS: VANCOMYCIN HCL 1,000 MG in SODIUM CHLORIDE 0.9% 250 ML IV SCH (08:36)
[2022-07-01] MEDS: INSULIN ASPART PER UNIT CHARGE SC SCH ×4 (08:40→20:56)
[2022-07-01 08:41] LABS: Basophils # (auto) 0.03 K/uL (0-0.2); Basophils % (auto) 0.6 %; Eosinophils # (auto) 0.04 K/uL (0-0.50); Eosinophils % (auto) 0.8 %; Hematocrit (blood only) 37.3 % (42.0-52.0); Immature Granulocytes # (auto) 0.01 K/uL (0.01-0.20); Immature Granulocytes % (auto) 0.2 %; Lymphocytes % (auto) 28.3 %; Mean Corpuscular Hemoglobin 31.4 pg (25.0-34.0); Mean Corpuscular Hgb Conc 34.9 g/dL (32.0-36.0); Mean Corpuscular Volume 90.1 fL (80.0-100.0); Monocytes # (auto) 0.33 K/uL (0.11-0.59); Monocytes % (auto) 6.7 %; Neutrophils # (auto) 3.13 K/uL (1.40-6.50); Neutrophils % (auto) 63.4 %; Platelet Count 142 K/uL (130-400); RDW Coefficient of Variation 12.3 % (11.5-14.5); RDW Standard Deviation 40.4 fL (36.4-46.3); Red Blood Count 4.14 M/uL (4.70-6.10); White Blood Count 4.94 K/ul (4.8-10.8)
[2022-07-01 08:59] LABS: Albumin Globulin Ratio 1.1 (0.9-2); Albumin Level 3.8 gm/dl (3.4-5.0); BUN Creatinine Ratio 13.9 (10-20); Bilirubin,Total 0.9 mg/dl (0.2-1.0); Calcium 8.7 mg/dl (8.6-10.3); Est GFR (African American) 90.3 ml/min; Est GFR (Non-African American) 77.9 ml/min; Globulin 3.4 gm/dl (2.5-4.0); Potassium 4.3 mmol/L (3.5-5.1); Total Protein 7.2 gm/dl (6.0-8.3)
--- NOTE | 2022-07-01 15:21 | Pharmacy Report ---
Pharmacy PK ABX Note - Date of Service July 01, 2022 - Assessment and Plan Assessment 52 year old M receiving VANCOMYCIN/ZOSYN for treatment of LLE cellulitis. Pertinent microbiologic data includes: blood cultures negative, foot MRI positive for osteomyelitis Day # 3 of antimicrobial therapy. Plan Vancomycin * Random vancomycin level came back at 11 mcg/ml - dosing associated with AUC <400 therefore will increase dosing * Will increase to vancomycin 1500 mg iv q 12 hr - this dosing is estimated to achieve a trough level of ~18 mcg/ml, AUC 400-600 and is associated with 14% risk of nephrotoxicity * Plan to recheck level in next 2-3 days to ensure stable Pharmacy will continue to follow and will adjust dose/frequency as necessary. Thank you. Pharmacy has transitioned to AUC monitoring for vancomycin. AUC/THEODORA is the preferred PK/PD target and is associated with decreased risk of nephrotoxicity compared to traditional trough targets.
--- NOTE | 2022-07-01 17:41 | Hospitalist Progress Note ---
Date of Service July 01, 2022 Assessment & Plan (1) Diabetic infection of right foot: Plan: Previously grew MSSA, and group C beta strep resistant to azithromycin, clindamycin and erythromycin. Continue vancomycin IV and Zosyn IV begun in the ED CT scan negative for osteomyelitis at previous admission from 06/08-06/11/2022 Venous doppler no evidence of DVT MRI - Osteomyelitis involving the proximal and distal phalanx of the first toe as described. No soft tissue abscess. Full report above Podiatry following Discussed patient with Dr Dawson this evening Will need 6-8 weeks of IV antibiotics (will need Pic line placed) Need to wear the orthotics Will need set up with the wound healing center and possible hyperbaric treatments Awaiting the final wound cultures Blood cultures negative to date (2) Mild renal insufficiency: Plan: - Held Lisinopril/HCTZ - BP stable 146/84 - likely mild BAILEE and has since resolved will restart med (3) Hypertension: Plan: chronic and stable continue Lisinopril/HCTZ (4) Type 2 diabetes mellitus: Plan: Continue Jardiance 25 mg daily Hold metformin [address] on Accu-Cheks before meals and at bedtime with NovoLog coverage per scale Hemoglobin A1c - reviewed 8.8 (10.9) (5) Hypertriglyceridemia: Plan: Chronic Last TG level was 359 Admission and Anticipated Discharge Date Admission Date: June 29, 2022 Subjective Patient was seen this afternoon. He is resting in bed. S/P debridement of foot yesterday and MRI revealing osteomyelitis Review of Systems Review of Systems: The patient denies chest pain, palpitations, shortness of breath, dyspnea on exertion, cough, sore throat, fevers, chills, sweats, weight change, nausea, vomiting, diarrhea , constipation, abdominal pain, pelvic pain, blood in urine or stool, dysuria, urinary frequency or urgency, lightheadedness, dizziness, headache, memory loss, loss of consciousness, rash, abnormal bruising or bleeding, imbalance, focal or generalized weakness, numbness or tingling in arms, generalized arthralgias or myalgias, back or neck pain, or night sweats. The review of systems is otherwise negative other than for that already noted above, and at least 10 systems have been reviewed. Physical Exam Constitutional: WD/WN, vitals as above Neck: trachea midline, no thyromegaly Respiratory: normal respiratory effort, lungs clear to auscultation Cardiovascular: RRR, no murmur, no edema Gastrointestinal (Abdomen): normal bowel sounds, soft, nontender, no hepatosplenomegaly Psychiatric: A+Ox3, euthymic affect Results & Data Results & Data Vital Signs (Past 12 Hours) Vital Signs Temp Pulse Resp BP Pulse Ox O2 Del Method 07/01/22 16:52 36.8 C 79 17 146/84 H 98 Room Air 07/01/22 06:51 36.7 C 73 16 130/81 96 Room Air Laboratory Results Abnormal lab results 06/30/22 07/01/22 07/01/22 Range/Units 20:14 08:09 08:22 RBC 4.14 L (4.70-6.10) M/uL Hgb 13.0 L (14.0-18.0) g/dl Hct 37.3 L (42.0-52.0) % Glucose (70-99(Fasting)) mg/dl POC Glucose 140 H 114 H (70-99) mg/dl 07/01/22 07/01/22 07/01/22 Range/Units 08:22 12:17 16:54 RBC (4.70-6.10) M/uL Hgb (14.0-18.0) g/dl Hct (42.0-52.0) % Glucose 122 H (70-99(Fasting)) mg/dl POC Glucose 148 H 126 H (70-99) mg/dl Diagnostic Findings Foot MRI 06/30/22 20:12 Exam(s): MRI RIGHT FOOT W/WO Contrast IV Amt: 9.5cc gadavist EXAM: MR Right Lower Extremity Without and With Intravenous Contrast, Foot CLINICAL HISTORY: Reason for exam: Rule out osteomyelitis great toe right foot. TECHNIQUE: Multiplanar magnetic resonance images of the right foot without and with intravenous contrast. CONTRAST: Patient received 9.5cc gadavist of IV contrast COMPARISON: 06/08/2022. FINDINGS: TENDONS/Muscles : The visualized tendons and musculature unremarkable. Bones/joints: There is less severe edema along the dorsum of the fusion diffusely along the fifth metatarsal bone. Soft tissues: Extensive edema involving the proximal and distal phalanx of the first toe with edema and enhancement consistent with cellulitis in the surrounding soft tissues. There is enhancement within the proximal and distal phalanx of the first toe following contrast administration consistent with osteomyelitis. Otherwise normal alignment. No acute fracture. There is questionable mild ulceration along the plantar region and medial aspect of the interphalangeal joint of the first toe. IMPRESSION: 1. Osteomyelitis involving the proximal and distal phalanx of the first toe as described. 2. No soft tissue abscess. Electronically signed by: Sangita Butcher MD 07/01/22 00:05 AM PG Care Time/CCT Total # of Minutes Spent Total Time Spent with Patient: Total time spent is greater than 50% in coordination of care (as documented) at patient's floor/unit and/or counseling patient: Coding Level of Care Code 39857 SUB INP/OBS CARE 2/35MIN Diagnoses Diabetic infection of right foot E11.628; L08.9 Mild renal insufficiency N28.9 Hypertension I10 Type 2 diabetes mellitus E11.9 Hypertriglyceridemia E78.1
[2022-07-01] MEDS: VANCOMYCIN HCL 1,500 MG in SODIUM CHLORIDE 0.9% 500 ML IV SCH (18:08)
--- NOTE | 2022-07-01 21:26 | Orthopedic Progress Note ---
Date of Service July 01, 2022 Assessment & Plan (1) Ulcer: Plan: Patient seen, evaluated, and treated. Patient's is present at bedside. Awaiting wound cultures. We reviewed MRI and MRI images. There is uptake of contrast in the T1 images consistent with early onset of osteomyelitis. There is no to minimal cortical erosion. We did discuss treatment options and Patient elects for continued conservative therapy. Patient will require PICC line with 8 weeks IV abx. Off loading remains an essential treatment modality. This will be paramount for successful treatment. Significant time was spent with Patient education. Recommended follow up with [facility] wound healing center for adjunctive treatment modalities including but not limited to total contact casting, HBO therapy, and advanced dressing. Will continue to follow while in house. Thank you for allowing me to participate in this Patient's care. (2) Cellulitis of foot: (3) Diabetic infection of right foot: Admission and Anticipated Discharge Date Admission Date: June 29, 2022 Subjective Patient seen at bedside. His is present who helps with history and care. He had MRI this morning revealing osteomyelitis Review of Systems Review of Systems: All systems reviewed & are unremarkable except as noted in Subjective Physical Exam Constitutional: well developed and well nourished Eyes: normal visual palomares by confrontation ENMT: Ears: + external ear abnormality Neck: normal visual inspection Respiratory: normal respiratory effort Cardiovascular: Rate/Rhythm: regular rate and regular rhythm Musculoskeletal: Extremities: extremities normal to inspection and strength 5/5 throughout Skin: Focused Exam: Wound location:Right Hallux IPJ Wound base color and depth:Full-thicknessprobes to bone Wound size (cm):0.6x0.6x 0.6cm Odor:No malodor Drainage:mild purulence Undermining:None Borders:Hyperkeratotic Neurologic: Absent epicritic sensation. Psychiatric: Orientation: alert and oriented x 3 Results & Data Vital Signs (Past 12 Hours) Vital Signs Temp Pulse Resp BP Pulse Ox O2 Del Method 07/01/22 16:52 36.8 C 79 17 146/84 H 98 Room Air Diagnostic Findings EXAM: MR Right Lower Extremity Without and With Intravenous Contrast, Foot CLINICAL HISTORY: Reason for exam: Rule out osteomyelitis great toe right foot. TECHNIQUE: Multiplanar magnetic resonance images of the right foot without and with intravenous contrast. CONTRAST: Patient received 9.5cc gadavist of IV contrast COMPARISON: 06/08/2022. FINDINGS: TENDONS/Muscles : The visualized tendons and musculature unremarkable. Bones/joints: There is less severe edema along the dorsum of the fusion diffusely along the fifth metatarsal bone. Soft tissues: Extensive edema involving the proximal and distal phalanx of the first toe with edema and enhancement consistent with cellulitis in the surrounding soft tissues. There is enhancement within the proximal and distal phalanx of the first toe following contrast administration consistent with osteomyelitis. Otherwise normal alignment. No acute fracture. There is questionable mild ulceration along the plantar region and medial aspect of the interphalangeal joint of the first toe. IMPRESSION: 1. Osteomyelitis involving the proximal and distal phalanx of the first toe as described. 2. No soft tissue abscess. Electronically signed by: Sangita Butcher MD 07/01/22 00:05 AM Source: Toe,Right OV Order: Ordered: Surf Wnd Cul/Sm Procedure Result Verified Site Gram Stain Final 07/01/22-6422 Gram Stain Result Rare Epithelial Cells Many WBCs Seen Moderate Gram Positive Cocci Surface Wound Culture PENDING
[2022-07-02] MEDS: PIPERACILLIN/TAZOBACTAM 4.5 GM in DEXTROSE 5% 100 ML IV SCH ×3 (04:03→19:42)
[2022-07-02] MEDS: VANCOMYCIN HCL 1,500 MG in SODIUM CHLORIDE 0.9% 500 ML IV SCH ×2 (06:12→17:44)
[2022-07-02 07:03] LABS: Basophils # (auto) 0.04 K/uL (0-0.2); Eosinophils % (auto) 2.5 %; Hematocrit (blood only) 39.7 % (42.0-52.0); Hemoglobin 13.7 g/dl (14.0-18.0); Immature Granulocytes # (auto) 0.01 K/uL (0.01-0.20); Immature Granulocytes % (auto) 0.2 %; Lymphocytes # (auto) 1.62 K/uL (1.2-3.4); Lymphocytes % (auto) 39.7 %; Mean Corpuscular Hemoglobin 31.2 pg (25.0-34.0); Mean Corpuscular Hgb Conc 34.5 g/dL (32.0-36.0); Mean Corpuscular Volume 90.4 fL (80.0-100.0); Mean Platelet Volume 10.1 fL (9.4-12.4); Monocytes # (auto) 0.34 K/uL (0.11-0.59); Monocytes % (auto) 8.3 %; Neutrophils # (auto) 1.97 K/uL (1.40-6.50); Neutrophils % (auto) 48.3 %; Platelet Count 140 K/uL (130-400); RDW Coefficient of Variation 12.2 % (11.5-14.5); RDW Standard Deviation 40.2 fL (36.4-46.3); Red Blood Count 4.39 M/uL (4.70-6.10); White Blood Count 4.08 K/ul (4.8-10.8)
[2022-07-02 07:25] LABS: Albumin Level 3.7 gm/dl (3.4-5.0); BUN Creatinine Ratio 13.9 (10-20); Bilirubin,Total 0.6 mg/dl (0.2-1.0); Calcium 8.9 mg/dl (8.6-10.3); Creatinine Clr Calc Pharmacy 86.4 ml/min; Est GFR (African American) 83.7 ml/min; Est GFR (Non-African American) 72.3 ml/min; Globulin 3.6 gm/dl (2.5-4.0); Potassium 4.5 mmol/L (3.5-5.1); Total Protein 7.3 gm/dl (6.0-8.3)
[2022-07-02] MEDS: LISINOPRIL/HCTZ 20/25MG 1 TAB PO SCH (08:59)
[2022-07-02] MEDS: INSULIN ASPART PER UNIT CHARGE SC SCH ×4 (09:03→21:23)
--- NOTE | 2022-07-02 12:53 | Hospitalist Progress Note ---
Date of Service July 02, 2022 Assessment & Plan (1) Diabetic infection of right foot: Plan: 52 yo M w/ diabetic ulcer with osteomyelitis of proximal and distal R first toe Acute/unstable - high risk - Previously grew MSSA, and group C beta strep resistant to azithromycin, clindamycin and erythromycin. - Continue vancomycin IV and Zosyn IV initiated in the ED, wound culture collected and still pending - Blood cultures with NGTD - CT scan negative for osteomyelitis at previous admission from 06/08-06/11/2022 - Venous doppler no evidence of DVT - Podiatry consulted, appreciate assistance - seen by Dr. Dawson, performed bedside debridement 07/01 - Will need 8 weeks of IV antibiotics (will need PICC line placed-consent will need to be signed) - Need to wear the orthotics, off load foot to aid in healing - Will need set up with the wound healing center and possible hyperbaric treatments upon d/c - Consult ID - not available on , will consult on Monday (2) Mild renal insufficiency: Plan: BAILEE - acute/stable/resolved - Held Lisinopril/HCTZ on admission - BAILEE has resolved, chemistry panel reviewed this AM, creatinine 1.15 - Lisinopril/HCTZ resumed 07/02 (3) Hypertension: Plan: chronic and stable - BP well controlled on Lisinopril/HCTZ, continue (4) Type 2 diabetes mellitus: Plan: Chronic/stable - Continued Jardiance 25 mg daily but then placed on hold-uncertain as to why - Held metformin 1000 mg twice daily on admit - Place on Accu-Cheks before meals and at bedtime with NovoLog coverage per scale - Hemoglobin A1c - reviewed 8.8 (10.9) - Resume Metformin 1000mg BID (5) Hypertriglyceridemia: Plan: Chronic/unstable - Last TG level was 359 - Dietary modifications to obtain TG <150 Plan As above. Repeat labs in AM. Above plan of care to be d/w Dr. Yan. Admission and Anticipated Discharge Date Admission Date: June 29, 2022 Supervising Physician Co-Signing Physician Notes PA Supervision Note: I did not personally see or examine the patient. I verified all rhodes points and agree with ASIM Osmanwith the following exceptions and/or additions: None Subjective Patient seen on rounds this morning. Resting in bed, has no complaints. Pain is adequately controlled in right foot/toe. No cp, fever/chills, dyspnea, n/v/d. Physical Exam Physical Exam: GENERAL: 52 yo Well-developed, well-nourished WM. NAD. LUNGS: Clear to auscultation bilaterally. CARDIOVASCULAR: Regular rate and rhythm. EXTREMITIES: Left foot/toe wrapped. Sensation intact on distal aspect of toes. PT Pulses +2/4 b/l. Cap refill <2 sec. Results & Data Results & Data Vital Signs (Past 12 Hours) Vital Signs Temp Pulse Resp BP Pulse Ox O2 Del Method 07/02/22 07:52 36.6 C 75 18 161/94 H 98 Room Air Laboratory Results 07/02/22 06:29 07/02/22 06:29 PG Care Time/CCT Total # of Minutes Spent Total Time Spent with Patient: Total time spent is greater than 50% in coordination of care (as documented) at patient's floor/unit and/or counseling patient: Coding Level of Care Code 86383 SUB INP/OBS CARE 3/50MIN Diagnoses Diabetic infection of right foot E11.628; L08.9 Mild renal insufficiency N28.9 Hypertension I10 Type 2 diabetes mellitus E11.9 Hypertriglyceridemia E78.1
[2022-07-02] MEDS: metFORMIN HCL ER 500 MG TABCR PO SCH (19:45)
[2022-07-03] MEDS: PIPERACILLIN/TAZOBACTAM 4.5 GM in DEXTROSE 5% 100 ML IV SCH ×3 (04:00→19:23)
[2022-07-03] MEDS ORDERED: VANCOMYCIN LEVEL ONE (05:30)
[2022-07-03] MEDS: VANCOMYCIN HCL 1,500 MG in SODIUM CHLORIDE 0.9% 500 ML IV SCH ×2 (06:10→17:40)
[2022-07-03 06:19] LABS: Basophils # (auto) 0.03 K/uL (0-0.2); Basophils % (auto) 0.6 %; Eosinophils # (auto) 0.09 K/uL (0-0.50); Eosinophils % (auto) 1.7 %; Hemoglobin 14.1 g/dl (14.0-18.0); Immature Granulocytes # (auto) 0.01 K/uL (0.01-0.20); Immature Granulocytes % (auto) 0.2 %; Lymphocytes # (auto) 1.69 K/uL (1.2-3.4); Lymphocytes % (auto) 32.2 %; Mean Corpuscular Hemoglobin 31.3 pg (25.0-34.0); Mean Corpuscular Hgb Conc 34.4 g/dL (32.0-36.0); Mean Corpuscular Volume 91.1 fL (80.0-100.0); Mean Platelet Volume 9.8 fL (9.4-12.4); Monocytes # (auto) 0.45 K/uL (0.11-0.59); Monocytes % (auto) 8.6 %; Neutrophils # (auto) 2.98 K/uL (1.40-6.50); Neutrophils % (auto) 56.7 %; Platelet Count 152 K/uL (130-400); RDW Coefficient of Variation 12.4 % (11.5-14.5); RDW Standard Deviation 40.8 fL (36.4-46.3); White Blood Count 5.25 K/ul (4.8-10.8)
[2022-07-03 06:39] LABS: BUN Creatinine Ratio 17.4 (10-20); Calcium 9.1 mg/dl (8.6-10.3); Creatinine Clr Calc Pharmacy 82.1 ml/min; Est GFR (African American) 78.7 ml/min; Est GFR (Non-African American) 67.9 ml/min; Magnesium 1.9 mg/dl (1.7-2.4); Potassium 4.2 mmol/L (3.5-5.1)
[2022-07-03] MEDS: LISINOPRIL/HCTZ 20/25MG 1 TAB PO SCH (07:39)
[2022-07-03] MEDS: metFORMIN HCL ER 500 MG TABCR PO SCH ×2 (07:39→19:33)
[2022-07-03] MEDS: INSULIN ASPART PER UNIT CHARGE SC SCH ×4 (09:01→21:34)
--- NOTE | 2022-07-03 10:18 | Pharmacy Report ---
Pharmacy PK ABX Note - Date of Service July 03, 2022 - Assessment and Plan Assessment * 52 year old M receiving VANCOMYCIN/ZOSYN for treatment of osteomyelitis 2nd diabetic foot ulcer. * Pertinent microbiologic data includes: blood cultures negative, foot culture with Group C Strep and Staph species * ID consult placed - awaiting recs, hopeful for Monday * SCr stable, but may be trending up slightly. Plan Vancomycin * Goal AUC 400-600 * Trough level came back to 10.5 mcg/mL which is associated with an estimated AUC of 502 * Plan to recheck level in 48 hours - patient at risk for nephrotoxicity with co-utilization of Zosyn Pharmacy will continue to follow and will adjust dose/frequency as necessary. Thank you. Pharmacy has transitioned to AUC monitoring for vancomycin. AUC/THEODORA is the preferred PK/PD target and is associated with decreased risk of nephrotoxicity compared to traditional trough targets.
--- NOTE | 2022-07-03 12:40 | Hospitalist Progress Note ---
Date of Service July 03, 2022 Assessment & Plan (1) Diabetic infection of right foot: Plan: 52 yo M w/ diabetic ulcer with osteomyelitis of proximal and distal R first toe Acute/unstable - high risk - Previously grew MSSA, and group C beta strep resistant to azithromycin, clindamycin and erythromycin. - Continue vancomycin IV and Zosyn IV initiated in the ED, wound culture collected: group C strep, staph species (still prelim) - Blood cultures with NGTD - CT scan negative for osteomyelitis at previous admission from 06/08-06/11/2022 - Venous doppler no evidence of DVT - Podiatry consulted, appreciate assistance - seen by Dr. Dawson, performed bedside debridement 07/01 - Will need 8 weeks total of IV antibiotics (will need PICC line placed-consent obtained on 07/03) - Need to wear the orthotics, off load foot to aid in healing - Will need set up with the wound healing center and possible hyperbaric treatments upon d/c - Consult ID - not available on , will consult on Monday - Reviewed CBC - no fever or leukocytosis - Dressing changes per Dr. Dawson (2) Mild renal insufficiency: Plan: BAILEE - acute/stable/resolved - Held Lisinopril/HCTZ on admission - BAILEE has resolved, chemistry panel reviewed this AM, creatinine 1.21 - Lisinopril/HCTZ resumed 07/02 (3) Hypertension: Plan: chronic and stable - BP well controlled on Lisinopril/HCTZ, continue (4) Type 2 diabetes mellitus: Plan: Chronic/stable - Continued Jardiance 25 mg daily-held as inpatient d/t restricted use (only for HF pts) in the hospital - Held metformin 1000 mg twice daily on admit - Place on Accu-Cheks before meals and at bedtime with NovoLog coverage per scale - Hemoglobin A1c - reviewed 8.8 (10.9) - Continue Metformin 1000mg BID (5) Hypertriglyceridemia: Plan: Chronic/unstable - Last TG level was 359 - Dietary modifications to obtain TG <150 - Consider fenofibrate as outpatient Plan No need for repeat labs other than routine monitoring of renal function while on Vancomycin. Will discuss case with ID tomorrow in terms of narrowing antibiotic therapy for discharge. Possibly could be discharged as early as tomorrow if the stars align and all appropriate arrangements are in place versus d/c on Mallika. D/w patient, all questions answered. Consent on chart for picc line. Plan to be d/w Dr. Estrella. Admission and Anticipated Discharge Date Admission Date: June 29, 2022 Subjective Patient seen on daily rounds. Pain adequately controlled, no swelling. No fever/chills, cp or dyspnea. Physical Exam Physical Exam: GENERAL: 52 yo Well-developed, well-nourished WM. NAD. LUNGS: Clear to auscultation bilaterally. CARDIOVASCULAR: Regular rate and rhythm. EXTREMITIES: Left foot/toe wrapped. Sensation intact on distal aspect of toes. PT Pulses +2/4 b/l. Cap refill <2 sec. Results & Data Results & Data Vital Signs (Past 12 Hours) Vital Signs Temp Pulse Resp BP Pulse Ox O2 Del Method 07/03/22 08:17 36.5 C 63 18 138/87 97 Room Air Laboratory Results 07/03/22 05:53 07/03/22 05:53 PG Care Time/CCT Total # of Minutes Spent Total Time Spent with Patient: Total time spent is greater than 50% in coordination of care (as documented) at patient's floor/unit and/or counseling patient: Coding Level of Care Code 13965 SUB INP/OBS CARE 3/50MIN Diagnoses Diabetic infection of right foot E11.628; L08.9 Mild renal insufficiency N28.9 Hypertension I10 Type 2 diabetes mellitus E11.9 Hypertriglyceridemia E78.1
--- NOTE | 2022-07-03 21:02 | Orthopedic Progress Note ---
Date of Service July 03, 2022 Assessment & Plan (1) Ulcer: Plan: Patient seen, evaluated, and treated. Wound cultures show Staph and Strep. Awaiting wound sensitivities. MRI (+) OM Patient will require PICC line with 8 weeks IV abx. Off loading remains an essential treatment modality. Dry sterile dressing change with out incident. Will continue to follow while in house. Thank you for allowing me to participate in this Patient's care. (2) Cellulitis of foot: (3) Diabetic infection of right foot: Admission and Anticipated Discharge Date Admission Date: June 29, 2022 Subjective Patient seen at bedside resting comfortably. Dressing is intact. Patient has no complaints. Review of Systems Review of Systems: All systems reviewed & are unremarkable except as noted in Subjective Physical Exam Constitutional: well developed and well nourished Eyes: normal visual palomares by confrontation ENMT: Ears: + external ear abnormality Neck: normal visual inspection Respiratory: normal respiratory effort Cardiovascular: Rate/Rhythm: regular rate and regular rhythm Musculoskeletal: Extremities: extremities normal to inspection and strength 5/5 throughout Skin: Focused Exam: Wound location:Right Hallux IPJ Wound base color and depth:Full-thicknessprobes to bone Wound size (cm):0.6x0.6x 0.6cm Odor:No malodor Drainage:mild serous Undermining:None Borders:healthy Neurologic: Absent epicritic sensation Psychiatric: Orientation: alert and oriented x 3 Results & Data Vital Signs (Past 12 Hours) Vital Signs Temp Pulse Resp BP Pulse Ox O2 Del Method 07/03/22 14:36 36.7 C 75 18 121/75 95 Room Air Diagnostic Findings Surface Wound Culture Preliminary 07/03/22-1010 Organism 1 Group C Beta Strep Quantity Few Sens Sensitivities to Follow +MixWound Plus Low Counts of Probable Skin Xiao Organism 2 Staphylococcus species Quantity Rare Sens Sensitivities to Follow
[2022-07-04] MEDS: PIPERACILLIN/TAZOBACTAM 4.5 GM in DEXTROSE 5% 100 ML IV SCH (03:48)
[2022-07-04] MEDS: VANCOMYCIN HCL 1,500 MG in SODIUM CHLORIDE 0.9% 500 ML IV SCH (05:34)
[2022-07-04 07:08] LABS: Creatinine Clr Calc Pharmacy 95.5 ml/min; Est GFR (African American) 94.6 ml/min; Est GFR (Non-African American) 81.6 ml/min
[2022-07-04] MEDS: metFORMIN HCL ER 500 MG TABCR PO SCH ×2 (08:08→20:27)
[2022-07-04] MEDS: LISINOPRIL/HCTZ 20/25MG 1 TAB PO SCH (08:09)
[2022-07-04] MEDS: INSULIN ASPART PER UNIT CHARGE SC SCH ×4 (09:06→21:20)
--- NOTE | 2022-07-04 11:23 | Discharge Summary ---
Date of Service July 04, 2022 Admission HPI Per Admitting Provider The patient is a 52-year-old male with a past medical history including diabetes mellitus type 2, hypertriglyceridemia, hypertension, mild renal deficiency, hyperlipidemia, chronic pain, COVID-19, tachycardia and cellulitis of right great toe. He was most recently mated from 06/08-06/11/2022 for right great toe cellulitis, which had been having a nonhealing ulcer over the previous month at that time. CT evidence at that time was negative for for osteomyelitis. He did have right toe cultures performed which grew group C beta strep, MSSA and a probable pako gram-negative bacilli. He was discharged on penicillin V 500 mg every 6 hours for 10 days and Bactrim DS every 12 hours for 10 days. As noted above, the patient had had significant improvement, until he went to work with standing upright and his hard boots, and developed recurrent callus and then cellulitis over his right great toe and dorsum of foot. Principal Diagnosis Osteomyelitis R great toe d/t diabetic foot ulcer Discharge Exam GENERAL: 52 yo Well-developed, well-nourished WM. NAD. LUNGS: Clear to auscultation bilaterally. CARDIOVASCULAR: Regular rate and rhythm. EXTREMITIES: Right foot/toe wrapped. Sensation intact on distal aspect of toes. PT Pulses +2/4 b/l. Cap refill <2 sec. Discharge Data Allergies Allergy/AdvReac Type Severity Reaction Status Date / Time No Known Allergies Allergy Unknown Verified 06/29/22 21:37 Consultations 06/29/22 22:18 Consult Podiatry Routine 06/29/22 22:28 ED Decision to Admit Stat Ordered Studies Foot X-Ray 06/29/22 21:30 XR foot RT min 3V routine CLINICAL HISTORY: 1st digit infection/swelling TECHNIQUE: 3 views of the right foot were obtained. Comparison: None available at the time of this dictation. FINDINGS: No evidence of bony erosion is seen. The joint spaces are well preserved. Soft tissue swelling is seen about the first digit. IMPRESSION: No radiographic evidence of osteomyelitis is by soft tissue swelling about the first digit. If clinical concern remains, MRI is a more sensitive modality. ACT 112: Negative or not required by law. Electronically signed by: Raphael Wiggins M.D. 06/30/2022 7:21 AM Venous Doppler Study 06/29/22 23:15 Exam(s): US VENOUS RIGHT LOWER EXTREMITY EXAM: US Duplex Right Lower Extremity Veins CLINICAL HISTORY: RLE edema. TECHNIQUE: Real-time duplex ultrasound scan of the right lower extremity veins integrating B-mode two-dimensional vascular structure, Doppler spectral analysis, color flow Doppler imaging and compression. COMPARISON: No relevant prior studies available. FINDINGS: Deep veins: Unremarkable. No DVT in the visualized common femoral, femoral, proximal deep femoral or popliteal veins. The veins demonstrate normal color flow, are normally compressible, with normal phasic flow and/or augmentation response. The interrogated calf veins are patent. Superficial veins: Unremarkable. No thrombus in the saphenofemoral junction. Soft tissues: Subcutaneous edema noted at the right calf. No popliteal cyst. Lymph nodes: Incidental right inguinal lymph node measuring up to 1 cm in short axis diameter but with a maintained central fatty hilum. IMPRESSION: No evidence for deep vein thrombosis involving the right lower extremity. Electronically signed by: Freddy Low MD 06/30/22 02:37 AM Foot MRI 06/30/22 20:12 Exam(s): MRI RIGHT FOOT W/WO Contrast IV Amt: 9.5cc gadavist EXAM: MR Right Lower Extremity Without and With Intravenous Contrast, Foot CLINICAL HISTORY: Reason for exam: Rule out osteomyelitis great toe right foot. TECHNIQUE: Multiplanar magnetic resonance images of the right foot without and with intravenous contrast. CONTRAST: Patient received 9.5cc gadavist of IV contrast COMPARISON: 06/08/2022. FINDINGS: TENDONS/Muscles : The visualized tendons and musculature unremarkable. Bones/joints: There is less severe edema along the dorsum of the fusion diffusely along the fifth metatarsal bone. Soft tissues: Extensive edema involving the proximal and distal phalanx of the first toe with edema and enhancement consistent with cellulitis in the surrounding soft tissues. There is enhancement within the proximal and distal phalanx of the first toe following contrast administration consistent with osteomyelitis. Otherwise normal alignment. No acute fracture. There is questionable mild ulceration along the plantar region and medial aspect of the interphalangeal joint of the first toe. IMPRESSION: 1. Osteomyelitis involving the proximal and distal phalanx of the first toe as described. 2. No soft tissue abscess. Electronically signed by: Sangita Butcher MD 07/01/22 00:05 AM Spec: [id number] Collected: 06/30/22 Received: 06/30/22-[address]: Russ Cruz DO Copy To: Pedro Luis Cuadra MD Source: Toe,Right OV Order: Ordered: Surf Wnd Cul/Sm Procedure Result Verified Site Gram Stain Final 07/01/22-0733 Gram Stain Result Rare Epithelial Cells Many WBCs Seen Moderate Gram Positive Cocci Surface Wound Culture Preliminary 07/03/22-1010 Organism 1 Group C Beta Strep Quantity Few Sens Sensitivities to Follow +MixWound Plus Low Counts of Probable Skin Xiao Organism 2 Staphylococcus species Quantity Rare Sens Sensitivities to Follow Hospital Course (1) Osteomyelitis: 52 yo M w/ diabetic ulcer with osteomyelitis of proximal and distal R first toe Acute/unstable - high risk - Previously grew MSSA, and group C beta strep resistant to azithromycin, clindamycin and erythromycin. - Continue vancomycin IV and Zosyn IV initiated in the ED, wound culture collected: group C strep, staph species (still prelim) - Blood cultures with NGTD - CT scan negative for osteomyelitis at previous admission from 06/08-06/11/2022 - Venous doppler no evidence of DVT - Podiatry consulted, appreciate assistance - seen by Dr. Dawson, performed bedside debridement 07/01 - Will need 6-8 weeks total of IV antibiotics (PICC line placed (after consented) on 07/03) - Need to wear the orthotics, off load foot to aid in healing - Will need set up with the wound healing center and possible hyperbaric treatments - WCC f/u to be arranged by case management - Discussed case w/ ID (Dr. Rincon) - recommends 6w of IV Ancef 2g IV q8h OR 6g IV continuous infusion based on current cultures. - Dressing changes per Dr. Dawson and will arrange f/u with him in his office - Will arrange for home health services for wound care checks (2) Mild renal insufficiency: BAILEE - acute/stable/resolved - Held Lisinopril/HCTZ on admission - BAILEE has resolved, chemistry panel reviewed this AM, creatinine 1.21 - Lisinopril/HCTZ resumed 07/02 (3) Hypertension: chronic and stable - BP well controlled on Lisinopril/HCTZ, continue (4) Type 2 diabetes mellitus: Chronic/stable - Jardiance held as inpatient d/t restricted use (only for HF pts) in the hospital - Held metformin 1000 mg twice daily on admit - Place on Accu-Cheks before meals and at bedtime with NovoLog coverage per scale - Hemoglobin A1c - reviewed 8.8 (10.9) - Continue Metformin 1000mg BID and Jardiance upon d/c (5) Hypertriglyceridemia: Chronic/unstable - Last TG level was 359 - Dietary modifications to obtain TG <150 - Consider fenofibrate as outpatient - defer to patient's PCP Plan Patient is medically and hemodynamically stable for discharge home today with home IV antibiotics x 6 weeks for osteo and close follow up with wound care, podiatry as well as PCP. Above plan of care has been d/w Dr. Estrella who is in agreement with aforementioned. Total Time Total Time Spent Total Time Spent (In Minutes): 40 minutes Discharge Plan Discharge Items Patient Disposition: Home - Home Health Services Reason For Visit: RLE DIABETIC FOOT ULCER Discharge Diagnosis: bone infection in R great toe Activity: As commented below Activity Comment: keep pressure off R foot as much as possible Non-emergency contact: Primary Care Provider and Specialist Call non-emergency contact if: you have any medication questions and your symptoms worsen Follow-up/Referrals: No Kim MD [Primary Care Provider] - Jayant Dawson DPM, MS [Physician] - Diet: Carb Consistent or DM2 Addtl Attending Provider Instructions: You were hospitalized due to worsening infection/pain in right great toe. You underwent an MRI that found you have a bone infection in your great toe. This is caused by bacteria. You were seen by Dr. Dawson who was able to do a bedside procedure to get rid of some of the skin. To treat this you will require a total of 6 weeks of IV antibiotics. Your antibiotics (called Cefazoline or Ancef) will be arranged by case management and shipped to your house. We will arrange for home health services including a home nurse who will come in and do wound care checks, teach you on dressing changes. You will also be arranged for follow up in our wound care clinic as well as with Dr. Dawson. You are going home with an IV called a PICC line in your left arm. Please handle this with care. You will need to have someone (such as your ) that is able to help you with your antibiotics and flushing the picc line. We will do teaching for your so she feels comfortable with how to support services manager the antibiotics and flush your picc line. If you have increased pain/bleeding/drainage in your foot or if you should experience pain, swelling in your arm with your picc line or you are unable to flush the picc line, please contact your doctor or go to the ER immediately. It is recommended that you follow up with your family doctor within 1 week of discharge. If you have any questions/concerns after you leave the hospital, please contact the nonemergency number listed on your discharge paperwork. In the event of an emegency, call 911 or go to your nearest ER. Pending Studies at Discharge: No Stand-Alone Forms: My [facility] [employer], Smoking Cessation Medications and DC Order Prescriptions: Continued metformin 500 mg tablet extended release 24 hr 1,000 mg PO BID Qty: 360 3RF lisinopril-hydrochlorothiazide 20-25 mg tablet 1 tab PO QAM Qty: 90 3RF Jardiance 25 mg tablet 25 mg PO QAM Qty: 90 3RF (DME) pen needle, diabetic [BD Ultra-Fine Mini Pen Needle] 31 gauge x 3/16" needle See Dose Instructions .ROUTE .MEDSUPPLY Qty: 100 0RF Dose Instruction: As directed Rx Instructions: As directed 1 daily Admission Data Admit Date/Time: 06/29/22 23:27 Attending Provider: Donnie Estrella Admit Provider: Pedro Luis Cuadra Primary Care Provider: No Kim Other Providers: Jayant Dawson ; Pedro Luis Cuadra ; Donnie Estrella Coding Level of Care Code 06608 INP/OBS DISCH >30 MIN Diagnoses Osteomyelitis M86.9 Mild renal insufficiency N28.9 Hypertension I10 Type 2 diabetes mellitus E11.9 Hypertriglyceridemia E78.1
[2022-07-04] MEDS: ceFAZolin 2000MG 2,000 MG/15 ML SYR IV SCH ×2 (11:33→18:12)
--- NOTE | 2022-07-04 16:20 | Hospitalist Progress Note ---
Date of Service July 04, 2022 Assessment & Plan (1) Osteomyelitis: Plan: 52 yo M w/ diabetic ulcer with osteomyelitis of proximal and distal R first toe Acute/unstable - high risk - Previously grew MSSA, and group C beta strep resistant to azithromycin, clindamycin and erythromycin. - Continue vancomycin IV and Zosyn IV initiated in the ED, wound culture collected: group C strep, staph species (still prelim) - Blood cultures with NGTD - CT scan negative for osteomyelitis at previous admission from 06/08-06/11/2022 - Venous doppler no evidence of DVT - Podiatry consulted, appreciate assistance - seen by Dr. Dawson, performed bedside debridement 07/01 - Will need 6-8 weeks total of IV antibiotics (PICC line placed (after consented) on 07/03) - Need to wear the orthotics, off load foot to aid in healing - Will need set up with the wound healing center and possible hyperbaric treatments - WCC f/u to be arranged by case management - Discussed case w/ ID (Dr. Rincon) - recommends 6w of IV Ancef 2g IV q8h OR 6g IV continuous infusion based on current cultures. - Dressing changes per Dr. Dawson and will arrange f/u with him in his office - Will arrange for home health services for wound care checks (2) Mild renal insufficiency: Plan: BAILEE - acute/stable/resolved - Held Lisinopril/HCTZ on admission - BAILEE has resolved, chemistry panel reviewed this AM, creatinine 1.21 - Lisinopril/HCTZ resumed 07/02 (3) Hypertension: Plan: chronic and stable - BP well controlled on Lisinopril/HCTZ, continue (4) Type 2 diabetes mellitus: Plan: Chronic/stable - Jardiance held as inpatient d/t restricted use (only for HF pts) in the hospital - Held metformin 1000 mg twice daily on admit - Place on Accu-Cheks before meals and at bedtime with NovoLog coverage per scale - Hemoglobin A1c - reviewed 8.8 (10.9) - Continue Metformin 1000mg BID and Jardiance upon d/c (5) Hypertriglyceridemia: Plan: Chronic/unstable - Last TG level was 359 - Dietary modifications to obtain TG <150 - Consider fenofibrate as outpatient - defer to patient's PCP Plan Patient is stable for discharge however case management was not able to find an accepting home health that is available to take him until tomorrow. Subsequently pt will be d/c'd tomorrow. Plan d/w Dr. Estrella. Admission and Anticipated Discharge Date Admission Date: June 29, 2022 Subjective Patient seen on daily rounds this morning. Patient has no complaints. Hoping for discharge today. Physical Exam Physical Exam: GENERAL: 52 yo Well-developed, well-nourished WM. NAD. LUNGS: Clear to auscultation bilaterally. CARDIOVASCULAR: Regular rate and rhythm. EXTREMITIES: Right foot/toe wrapped. Sensation intact on distal aspect of toes. PT Pulses +2/4 b/l. Cap refill <2 sec. Results & Data Results & Data Vital Signs (Past 12 Hours) Vital Signs Temp Pulse Resp BP Pulse Ox O2 Del Method 07/04/22 14:50 36.7 C 72 16 107/65 98 Room Air 07/04/22 07:28 36.7 C 67 16 128/82 100 Room Air PG Care Time/CCT Total # of Minutes Spent Total Time Spent with Patient: Total time spent is greater than 50% in coordination of care (as documented) at patient's floor/unit and/or counseling patient: Coding Level of Care Code 43794 SUB INP/OBS CARE 3/50MIN Diagnoses Osteomyelitis M86.9 Mild renal insufficiency N28.9 Hypertension I10 Type 2 diabetes mellitus E11.9 Hypertriglyceridemia E78.1
[2022-07-05] MEDS: ceFAZolin 2000MG 2,000 MG/15 ML SYR IV SCH (03:14)
[2022-07-05] MEDS ORDERED: VANCOMYCIN LEVEL ONE (05:30)
[2022-07-05 08:11] LABS: Creatinine Clr Calc Pharmacy 106.8 ml/min; Est GFR (African American) 108.2 ml/min; Est GFR (Non-African American) 93.4 ml/min
[2022-07-05] MEDS: INSULIN ASPART PER UNIT CHARGE SC SCH (09:06)
[2022-07-05] MEDS: metFORMIN HCL ER 500 MG TABCR PO SCH (09:07)
[2022-07-05] MEDS: LISINOPRIL/HCTZ 20/25MG 1 TAB PO SCH (09:07)
--- NOTE | 2022-07-11 07:54 | Coding Query ---
DEBRIDEMENT DOCUMENTATION To promote full compliance with coding requirements relating to patient care, physician participation is requested in all cases of oyster preparer uncertainty. Please assist us with the question(s) below: Please place an X in the parenthesis (x). If other, please document the finding: ( DEBRIDEMENT DONE ON RIGHT FOOT 06/30) Type of Debridement: (X) Excisional Debridement- Cutting away necrotic, devitalized tissue or slough to the level of viable tissue using a sharp instrument (i.e. scalpel, scissors, etc.) ( ) Non Excisional Debridement- The removal of necrotic, devitalized tissue or slough by means of scraping, mechanical brushing, flushing, or washing (i.e. irrigation,whirlpool);minor removal of loose fragments. ( ) Other (please specify): Instrument Used: ( ) Scissors (X ) Scalpel ( ) Curette ( ) Other (please specify): Depth of Debridement: ( ) Skin ( ) Skin and Subcutaneous Tissue ( X ) Skin, Subcutaneous Tissue and Muscle ( ) Skin, Subcutaneous Tissue, Muscle and Bone ( ) Other (please specify): Please Specify the Size of Debridement in cm2: Thank you JD Eubanks CCS
== END 2022-07-05 12:23 | disposition home health service (06) | DRG 623 ==
LOC: ED 20:57 → 3N 23:27 → SUATTDRO 23:27 → 3N 06-30 00:35